=== PATIENT | male | born 1965 | race Caucasian/White ===

== ENCOUNTER 2020-01-31 19:30 | Observation (INO) ==
[2020-01-31] MEDS ORDERED: PROCHLORPERAZINE 2 ML IV ONE (20:45)
[2020-01-31] MEDS ORDERED: FAMOTIDINE 20MG IV PUSH 20 MG/5 ML SYR IV STA (20:45)
[2020-01-31] MEDS ORDERED: SODIUM CHLORIDE 0.9% 500 ML IV ONE (20:45)
[2020-01-31] MEDS ORDERED: ACETAMINOPHEN 1,000 MG/100 ML VIAL IV STA (20:45)
[2020-01-31] MEDS ORDERED: DiphenhydrAMINE HCL 50 MG/ML VIAL IV STA (20:45)
--- NOTE | 2020-01-31 20:51 | Emergency Department Note ---
Impression & Plan Epigastric abdominal pain, Cholelithiasis, Elevated bilirubin ED Provider Note NAME: CHRISTA LEONARD AGE: 54 SEX: M ARRIVES VIA: Walk-In INFORMANT: Patient, ED PROVIDER(S): Phoenix Davis MD CHIEF COMPLAINT: Abdominal pain/ chest pain PLAN: Disposition: Admit MEDICAL DECISION MAKING: The patient is a pleasant 54-year-old gentleman with a past medical history of hypertension, hyperlipidemia, DM 2, LVH presents emergency department with epigastric pain after having colonoscopy today around 10 AM, eating lunch of na usea chills and then several hours later around 1600 and experiencing substernal epigastric pain with mild nausea. He reports a similar episode last week after eating and also felt similar symptoms in the setting of a colonoscopy 1 year ago. He does report feeling bloated and has not passed any gas. He denies any recent illness including denies fevers, chills, cough, congestion, diarrhea, urinary symptoms. On arrival the patient is uncomfortable no acute distress, afebrile stable vital signs. Exam he has mild epigastric discomfort without discrete tenderness. EKG without overt acute ischemia. Chest x-ray negative for acute process. WBC, hemoglobin and platelets within normal limits. Chemistry without acidosis. Total bilirubin 1.9 which is slightly elevated from prior values with direct bilirubin of 0.4. AST, ALT and alk phos are within normal limits. Troponin is negative/undetectable. Lipase is not elevated. CT abdomen pelvis demonstrates fully distended gallbladder with slight wall thickening. A formal gallbladder ultrasound was performed which again demonstrates dilated gallbladder with thickened wall measuring 8 mm. Several tiny gallstones are noted along the gallbladder wall with sludge. CBD measures 7 mm. Upon reevaluation the patient reports feeling some improvement after morphine. However he still reports that he has residual pain though not as severe. Given the patient's elevated bilirubin from baseline in the setting of his CT and ultrasound findings reasonable to admit the patient for further observation of symptoms and likely HIDA scan to further characterize possible biliary obstruction/cholecystitis. Patient is agreeable with this plan. Case was discussed with Dr. Marshall, [facility] [place] hospitalist, who will evaluate the patient for admission. Triage Nursing notes reviewed and agree them. Prior medical records reviewed Vital Signs: reviewed and remarkable for no significant abnormalities Differential diagnosis: Appendicitis, testicular torsion, infections, diverticulitis, UTI, obstruction, mesenteric ischemia, aortic pathology, inflammatory bowel disease, renal colic, PUD, pancreatitis, biliary pathology, hernia, volvulus, constipation, as well as other pathologies. ER treatment provided: See below. Diagnostics interpreted by me: ECG: Sinus bradycardia, 55 bpm, no ectopy, no overt ST elevation or depression, QTC 434, QRS 82. Cardiac Monitoring: An order for continuous cardiac monitoring was placed and demonstrated sinus bradycardia, 55 bpm, no ectopy. Laboratory studies: See below Imaging studies: XR chest 1V portable CLINICAL HISTORY: Atypical chest pain COMPARISON STUDY: December 06, 2013 FINDINGS: The heart is borderline enlarged. There is no failure. There is no focal pulmonary consolidation. There are no pleural effusions. There is no pneumothorax.[ IMPRESSION: No active disease in the chest. -- Preliminary Findings Only See Final Report For Complete Findings CT ABDOMEN & PELVIS With Contrast: There is mild fatty infiltration of the liver and hepatomegaly with the liver measuring 21 cm craniocaudad. No focal liver lesion is seen. The spleen is borderline enlarged measuring 15 cm. No splenic lesion is seen. The gallbladder is fully distended with slight wall thickening measuring 5-6 mm. No calcified gallstones are seen. Correlate with clinical scenario. Consider ul trasound to evaluate for possible cholecystitis. The pancreas, adrenal glands, and kidneys appear nonacute. No hydronephrosis or ureterolithiasis is seen. Bowel loops are nondilated. No pneumoperitoneum, free fluid, focal bowel wall inflammation is seen. The urinary bladder is partially distended with an unremarkable appearance. The prostate gland is mildly enlarged. Moderate degenerative changes are seen in the lower lumbar spine facets. No fracture or bone lesion is seen. Delayed images show several parapelvic renal cysts. No hydronephrosis or urinary tract obstruction is seen. Radiologist: Neeraj Marshall MD Study ready at 22:50 and initial results transmitted at 23:04 -- Preliminary Findings Only See Final Report For Complete Findings US GALLBLADDER: There is fatty infiltration of the liver and hepatomegaly with the liver measuring 21 cm craniocaudad. No focal liver lesion is seen. The portal vein is patent with normal direction of flow. The gallbladder is mildly dilated with a thickened wall measuring 8 mm. There are several tiny gallstones along the gallbladder wall and sludge. Sonographic Hendrickson sign is negative. The common bile duct is nondilated measuring 7 mm. The right kidney measures 14 cm with normal appearance. No hydronephrosis. Radiologist: Neeraj Marshall MD Study ready at 00:11 and initial results transmitted at 00:17 Consultation(s): Case was discussed with Dr. Marshall, [facility] [place] hospitalist, who will evaluate the patient for admission. HPI: The patient is a pleasant 54-year-old gentleman with a past medical history of hypertension, hyperlipidemia, DM 2, LVH presents emergency department with epigastric pain after having colonoscopy today around 10 AM, eating lunch of nausea chills and then several hours later around 1600 and experiencing substernal epigastric pain with mild nausea. He reports a similar episode last week after eating and also felt similar symptoms in the setting of a colonoscopy 1 year ago. He does report feeling bloated and has not passed any gas. He denies any recent illness including denies fevers, chills, cough, congestion, diarrhea, urinary symptoms. ROS: See above HPI for pertinent positives & negatives. A total of 10 systems reviewed and were otherwise negative. PAST MEDICAL HISTORY:See Below PAST SURGICAL HISTORY:See Below FAMILY HISTORY:See Below SOCIAL HISTORY:See Below HOME MEDICATIONS:See Below ALLERGIES:See Below VITALS:See Below PHYSICAL EXAMINATION: GENERAL: Awake, alert, uncomfortable-appearing, in no distress HENT: Normocephalic, atraumatic. Oropharynx with dry mucous membranes and otherwise unremarkable. . EYES: Normal conjunctiva. Sclera non-icteric. NECK: Supple. No nuchal rigidity. FROM. No JVD. RESPIRATORY: Clear to auscultation. CARDIAC: Regular rate, normal rhythm. Extremities warm and well perfused. Pulses equal. ABDOMEN: Soft, non-distended. Mild epigastric discomfort without discrete tenderness to palpation. Negative Hendrickson's sign/No rebound or guarding. No masses. RECTAL: Deferred. MUSCULOSKELETAL: Chest examination reveals no tenderness. The back is symmetrical on inspection without obvious abnormality. There is no CVA te nderness to palpation. No joint edema. LOWER EXTREMITIES: Calves are equal size bilaterally and non-tender. No edema. No discoloration. NEURO: Normal sensorium. No sensory or motor deficits noted. SKIN: No rash or jaundice noted. 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) Palpitation (Resolved) SOB (shortness of breath) (Chronic 12/06/13) Subclinical hypothyroidism (Acute) Vitamin D insufficiency (Chronic) Surgical History (Updated 11/10/19 @ 09:01 by Filomena Goss PA-C) Status post surgery tx of fx of calcaneus Social History Smoking Status: Never smoker Second Hand Exposure: No; Hx Alcohol Use: Yes Hx Substance Use: No Preferred Language: Yi Communication Ability: Effective Visual Impairment: No Limitations Hearing Ability: Normal Configuration Technician Required: No marital status: Current Living Situation: Alone current occupational status: employed current occupation: [employer] Feels Safe at Home: Yes Dental Care, Regularly: Yes Physical Activity Frequency: 3-4 Times per Week Seatbelt Use: always Allergies Allergies Allergy/AdvReac Type Severity Reaction Status Date / Time No Known Allergies Allergy Verified 01/31/20 20:48 Home Meds Home Medications Medication Instructions Recorded Confirmed lansoprazole 15 mg capsule,delayed 15 mg PO Q2D cap 03/08/19 01/31/20 release cholecalciferol (vitamin D3) 1,000 unit PO DAILY 01/31/20 01/31/20 levothyroxine 75 mcg PO QAM 01/31/20 01/31/20 metformin 1,000 mg PO QAM 01/31/20 01/31/20 Previous Rx's Medication Instructions Recorded atorvastatin 10 mg tablet 10 mg PO QPM #30 tab 11/02/19 metoprolol succinate 50 mg 50 mg PO DAILY #90 tab 11/26/19 tablet,extended release 24 hr lisinopril 5 mg tablet 5 mg PO DAILY #90 tab 01/19/20 Results & Data (ED) Vital Signs Vital Signs - 24 hr 01/31/20 19:33 01/31/20 19:43 01/31/20 20:53 Temperature 36.7 C Temperature Source Oral Pulse Rate 61 Pulse Rate [Right Finger] 53 L Respiratory Rate 18 17 Respiratory Depth Normal Blood Pressure 205/118 H Blood Pressure [Left Arm] 169/93 H Blood Pressure Mean 147 Blood Pressure Mean [Left Arm] 118 Blood Pressure Position [Left Arm] Lying Pulse Oximetry 98 99 99 Oxygen Delivery Method Room Air Room Air Room Air Sepsis Recent Fever Within 48 Hours No Sepsis New/Unexplained Change in Mental Status No Sepsis Action Taken by Nursing No Action Required 01/31/20 21:09 01/31/20 22:38 02/01/20 00:15 Temperature Temperature Source Pulse Rate Pulse Rate [Right Finger] 65 58 L 58 L Respiratory Rate 15 18 20 Respiratory Depth Blood Pressure Blood Pressure [Left Arm] 154/92 H 159/104 H 111/56 L Blood Pressure Mean Blood Pressure Mean [Left Arm] 112 122 74 Blood Pressure Position [Left Arm] Lying Pulse Oximetry 97 95 97 Oxygen Delivery Method Room Air Room Air Sepsis Recent Fever Within 48 Hours Sepsis New/Unexplained Change in Mental Status Sepsis Action Taken by Nursing 02/01/20 02:11 Temperature Temperature Source Pulse Rate Pulse Rate [Right Finger] 67 Respiratory Rate Respiratory Depth Blood Pressure Blood Pressure [Left Arm] 135/89 Blood Pressure Mean Blood Pressure Mean [Left Arm] 104 Blood Pressure Position [Left Arm] Sitting Pulse Oximetry 95 Oxygen Delivery Method Room Air Sepsis Recent Fever Within 48 Hours Sepsis New/Unexplained Change in Mental Status Sepsis Action Taken by Nursing Laboratory Data Attestation: I reviewed the patient's lab results. Result diagrams: 01/31/20 20:05 01/31/20 20:05 Lab Results 01/31/20 01/31/20 01/31/20 Range/Units 20:05 20:05 20:05 WBC 8.11 (4.8-10.8) K/uL RBC 4.72 (4.7-6.1) M/uL Hgb 15.0 (14.0-18.0) g/dL Hct 40.5 L (42-52) % MCV 85.8 (80-100) fL MCH 31.8 (25-34) pg MCHC 37.0 H (32-36) g/dL RDW Std Deviation 42.7 (36.4-46.3) fL RDW Coeff of Dino 13.7 (11.5-14.5) % Plt Count 180 (130-400) K/uL MPV 11.4 H (7.4-10.4) fL Immature Gran % (Auto) 0.2 % Neut % (Auto) 75.6 % Lymph % (Auto) 18.0 % [place] % (Auto) 5.5 % Eos % (Auto) 0.6 % Baso % (Auto) 0.1 % Neut # (Auto) 6.12 (1.4-6.5) K/uL Lymph # (Auto) 1.46 (1.2-3.4) K/uL [place] # (Auto) 0.45 (0.11-0.59) K/uL Eos # (Auto) 0.05 (0-0.5) K/uL Baso # (Auto) 0.01 (0-0.2) K/uL Immature Gran # (Auto) 0.02 (0.00-0.02) K/uL PT 10.5 (9.0-12.0) Seconds INR 1.0 (0.9-1.1) APTT 30.5 (21.0-31.0) Seconds PTT Ratio 1.1 Sodium 141 (136-145) mmol/L Potassium 3.7 (3.5-5.1) mmol/L Chloride 109 H (98-107) mmol/L Carbon Dioxide 25 (21-32) mmol/L Anion Gap 7.0 (3-11) BUN 11 (7-18) mg/dl Creatinine 1.11 (0.6-1.4) mg/dl Est Cr Clr Drug Dosing Not Reportable Est GFR ( Amer) 86.8 Est GFR (Non-Af Amer) 74.9 BUN/Creatinine Ratio 9.5 L (10-20) Glucose 125 H (70-99) mg/dl Calcium 8.9 (8.5-10.1) mg/dl Phosphorus 2.4 L (2.5-4.9) mg/dl Magnesium 2.4 (1.8-2.4) mg/dl Total Bilirubin 1.9 H (0.2-1) mg/dl Direct Bilirubin 0.4 H (0-0.2) mg/dl AST 22 (15-37) U/L ALT 44 (12-78) U/L Alkaline Phosphatase 74 (45-117) U/L Troponin I < 0.015 (0-0.045) ng/ml Total Protein 7.6 (6.4-8.2) gm/dl Albumin 4.2 (3.4-5.0) gm/dl Globulin 3.4 (2.5-4.0) gm/dl Albumin/Globulin Ratio 1.2 (0.9-2) Lipase 108 (73-393) U/L TSH 3.390 (0.300-4.500) uIu/ml Administered Medications Discontinued Medications Diphenhydramine HCl (Benadryl) 25 mg IV NOW STA Stop: 01/31/20 20:46 Last Admin: 01/31/20 21:02 Dose: 25 mg Documented by: [id number] Sodium Chloride (Nss) 500 mls @ 999 mls/hr IV .Q31M ONE Stop: 01/31/20 21:15 Last Infusion: 01/31/20 21:30 Dose: 0 mls/hr Documented by: [id number] Admin: 01/31/20 21:02 Dose: 999 mls/hr Documented by: [id number] Acetaminophen (Ofirmev) 1,000 mg in 100 mls @ 400 mls/hr IV NOW STA Stop: 01/31/20 20:59 Last Infusion: 01/31/20 21:19 Dose: 0 mls/hr Documented by: [id number] Admin: 01/31/20 21:02 Dose: 400 mls/hr Documented by: [id number] Famotidine (Pepcid 20mg Iv Push) 20 mg in 5 mls @ 2.5 mls/min IV NOW STA Stop: 01/31/20 20:46 Last Admin: 01/31/20 21:02 Dose: 2.5 mls/min Documented by: [id number] Prochlorperazine (Compazine) 2 mls @ 1 mls/min IV ONE ONE Stop: 01/31/20 20:46 Last Admin: 01/31/20 21:02 Dose: 1 mls/min Documented by: [id number] Morphine Sulfate (Morphine Sulfate) 6 mg IV NOW STA Stop: 01/31/20 22:11 Last Admin: 01/31/20 22:19 Dose: 6 mg Documented by: [id number] Blood Pressure Blood Pressure Findings: Normal blood pressure Discharge Plan Visit Data Chief Complaint: Chest Pain Stated Complaint: CHEST PAIN, ABD PAIN ED Provider: Phoenix Davis Discharge Problem: Epigastric abdominal pain, Cholelithiasis, Elevated bilirubin Forms Stand Alone Forms: [facility] Prescriptions Prescriptions: No Action atorvastatin 10 mg tablet 10 mg PO QPM Qty: 30 RF: 5 metoprolol succinate 50 mg tablet extended release 24 hr 50 mg PO DAILY Qty: 90 RF: 3 lisinopril 5 mg tablet 5 mg PO DAILY Qty: 90 RF: 3 lansoprazole 15 mg capsule,delayed release(DR/EC) 15 mg PO Q2D RF: 0 levothyroxine 75 mcg tablet 75 mcg PO QAM RF: 0 metformin 1,000 mg tablet 1,000 mg PO QAM RF: 0 cholecalciferol (vitamin D3) 25 mcg (1,000 unit) capsule 1,000 unit PO DAILY RF: 0 Discharge Problem: Cholelithiasis Qualifiers: Cholelithiasis location: gallbladder
[2020-01-31 20:55] LABS: Basophils # (auto) 0.01 K/uL (0-0.2); Basophils % (auto) 0.1 %; Eosinophils # (auto) 0.05 K/uL (0-0.5); Eosinophils % (auto) 0.6 %; Hematocrit (blood only) 40.5 % (42-52); Immature Granulocytes # (auto) 0.02 K/uL (0.00-0.02); Immature Granulocytes % (auto) 0.2 %; Lymphocytes # (auto) 1.46 K/uL (1.2-3.4); Mean Corpuscular Hemoglobin 31.8 pg (25-34); Mean Corpuscular Volume 85.8 fL (80-100); Mean Platelet Volume 11.4 fL (7.4-10.4); Monocytes # (auto) 0.45 K/uL (0.11-0.59); Monocytes % (auto) 5.5 %; Neutrophils # (auto) 6.12 K/uL (1.4-6.5); Neutrophils % (auto) 75.6 %; Platelet Count 180 K/uL (130-400); RDW Coefficient of Variation 13.7 % (11.5-14.5); RDW Standard Deviation 42.7 fL (36.4-46.3); Red Blood Count 4.72 M/uL (4.7-6.1); White Blood Count 8.11 K/uL (4.8-10.8)
[2020-01-31 21:02] LABS: Alanine Aminotransferase 44 U/L (12-78); Albumin Level 4.2 gm/dl (3.4-5.0); Aspartate Aminotransferase 22 U/L (15-37); BUN Creatinine Ratio 9.5 (10-20); Bilirubin Direct 0.4 mg/dl (0-0.2); Blood Urea Nitrogen 11 mg/dl (7-18); Calcium 8.9 mg/dl (8.5-10.1); Carbon Dioxide 25 mmol/L (21-32); Chloride 109 mmol/L (98-107); Est GFR (African American) 86.8; Est GFR (Non-African American) 74.9; Glucose 125 mg/dl (70-99); Lipase 108 U/L (73-393); Magnesium 2.4 mg/dl (1.8-2.4); Partial Thromboplastin Ratio 1.1; Partial Thromboplastin Time 30.5 Seconds (21.0-31.0); Potassium 3.7 mmol/L (3.5-5.1); Prothrombin Time 10.5 Seconds (9.0-12.0); Sodium 141 mmol/L (136-145)
--- NOTE | 2020-01-31 21:06 | XRay Report ---
XR chest 1V portable CLINICAL HISTORY: Atypical chest pain COMPARISON STUDY: December 06, 2013 FINDINGS: The heart is borderline enlarged. There is no failure. There is no focal pulmonary consolid ation. There are no pleural effusions. There is no pneumothorax.[ IMPRESSION: No active disease in the chest. ACT 112: Negative or not required by law. Electronically signed by: Kelvin Sunshine M.D. 01/31/2020 9:04 PM
[2020-01-31 21:11] LABS: Albumin Globulin Ratio 1.2 (0.9-2); Alkaline Phosphatase 74 U/L (45-117); Bilirubin,Total 1.9 mg/dl (0.2-1); Globulin 3.4 gm/dl (2.5-4.0); Phosphorus 2.4 mg/dl (2.5-4.9); Total Protein 7.6 gm/dl (6.4-8.2); Troponin I < 0.015 ng/ml (0-0.045)
[2020-01-31] MEDS ORDERED: MoRPHine SULFATE 10 MG/ML CARP/VIAL IV STA (22:10)
[2020-02-01] MEDS ORDERED: MoRPHine SULFATE 4 MG/ML 1 ML CARP\\VIAL IV PRN (00:31)
[2020-02-01] MEDS ORDERED: MoRPHine SULFATE 2 MG/ML CARP IV PRN ×2 (00:31→05:17)
[2020-02-01] MEDS ORDERED: SODIUM CHLORIDE 0.9% 1000ML 1,000 ML IV SCH (01:45)
--- NOTE | 2020-02-01 01:51 | History & Physical Report ---
Date of Service February 01, 2020 Assessment & Plan (1) Epigastric abdominal pain: 54-year-old male with past medical history DM 2, hypertension, hypercholesterolemia, subclinical hypothyroidism, vitamin D deficiency presents with concerns of epigastric abdominal pain found to have concern for c holecystitis on imaging. Concern for cholecystitis -CT abdomen pelvis with contrast: The gallbladder is fully distended with slight wall thickening measuring 5-6 mm. No calcified gallstones are seen -US gallbladder: The gallbladder is mildly dilated with a thickened wall measuring 8 mm. There are several tiny gallstones along the gallbladder wall and sludge. Sonographic Hendrickson sign is negative. The common bile duct is nondilated measuring 7 mm T bili 1.9, direct bili 0.4. Trend daily CMP Plan for HIDA scan in a.m. We will make patient n.p.o. IVF with NSS@80 mls/hr Continue with IV Zosyn for antibiotic coverage Pain management with IV morphine 2 mg every 4 hours. IV Zofran PRN for nausea Defer any GI or surgical consult until after HIDA results Hypertension/hyperlipidemia Cont lisinopril 5 mg, metoprolol succinate 50 mg, atorvastatin 10 mg DM 2 Holding patient's home metformin. Will place on SSI A1c September.9 Hypothyroidism TSH 3.39 Cont levothyroxine 75 mcg FEN/GI: NSS@80. N.p.o. DVT prophylaxis: Lovenox SQ Full code Dispo: MedSurg History of Present Illness Chief Complaint: Abdominal pain Primary Care Provider: NICKI Newsome 54-year-old male with past medical history DM 2, hypertension, hypercholesterolemia, subclinical hypothyroidism, vitamin D deficiency presents with concerns of epigastric abdominal pain. Earlier in the morning patient had a colonoscopy after which he was eating Faroese food for lunch. Around 4 PM patient noted a sharp constant pain that lasted for about an hour, nonradiating. Patient notes that he feels very bloated. Severity 8 or 9 out of 10 on pain scale. Previous similar such occurrence last when patient was eating a turkey sandwich. No known exacerbating or alleviating factors. Associated nausea. Patient otherwise denies any fevers, vomiting, diarrhea, chills, chest pain, shortness of breath, urinary symptoms, no sick contacts or recent travel anywhere. Patient with no other acute concerns or complaints. At time of my evaluation patient notes he is no longer having abdominal pain, 0 out of 10. Pertinent labs: Glucose 125, phosphorus 2.4, T bili 1.9, direct bili 0.4, troponin negative, lipase/liver enzymes WNL CT abdomen pelvis with contrast ([facility]): The gallbladder is fully distended with slight wall thickening measuring 5-6 mm. No calcified gallstones are seen. There is mild fatty infiltration of the liver and hepatomegaly with the liver measuring 21 cm craniocaudad. No focal liver lesion is seen. The spleen is bord peterson enlarged measuring 15 cm. No splenic lesion is seen. The pancreas, adrenal glands, and kidneys appear nonacute. No hydronephrosis or ureterolithiasis is seen. US gallbladder ([facility]): The gallbladder is mildly dilated with a thickened wall measuring 8 mm. There are several tiny gallstones along the gallbladder wall and sludge. Sonographic Hendrickson sign is negative. The common bile duct is no ndilated measuring 7 mm. ER course: IV acetaminophen 1 g, IV diphenhydramine 25 mg, IV famotidine 20 mg, IV morphine 2 mg / 4 mg, IV prochlorperazine, NSS 1.5 L Surgical history: No prior abdominal surgeries Social history: Denies tobacco use. Social alcohol use. Denies any illicit drug use Allergies Allergy/AdvReac Type Severity Reaction Status Date / Time No Known Allergies Allergy Verified 01/31/20 20:48 Home Medications Home Medications Medication Instructions Recorded Confirmed Type lansoprazole 15 mg capsule,delayed 15 mg PO Q2D cap 03/08/19 01/31/20 History release atorvastatin 10 mg tablet 10 mg PO QPM #30 tab 11/02/19 01/31/20 Rx metoprolol succinate 50 mg 50 mg PO DAILY #90 tab 11/26/19 01/31/20 Rx tablet,extended release 24 hr lisinopril 5 mg tablet 5 mg PO DAILY #90 tab 01/19/20 01/31/20 Rx cholecalciferol (vitamin D3) 1,000 unit PO DAILY 01/31/20 01/31/20 History levothyroxine 75 mcg PO QAM 01/31/20 01/31/20 History metformin 1,000 mg PO QAM 01/31/20 01/31/20 History Past Med/Surg History Medical History (Updated 02/01/20 @ 03:26 by Phoenix Davis MD) Chest pain (Resolved) Diabetes type 2, uncontrolled (Chronic) Hypercholesterolemia (Chronic) Hypertension (Chronic) Incomplete bladder emptying (Resolved) Left ventricular hypertrophy (Chronic) 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) Palpitation (Resolved) SOB (shortness of breath) (Chronic 12/06/13) Subclinical hypothyroidism (Acute) Vitamin D insufficiency (Chronic) Surgical History (Updated 11/10/19 @ 09:01 by Filomena Goss PA-C) Status post surgery tx of fx of calcaneus Social History Smoking Status: Never smoker Second Hand Exposure: No; Hx Alcohol Use: No Hx Substance Use: No Preferred Language: Khmer Communication Ability: Effective Visual Impairment: No Limitations Hearing Ability: Normal Operations Lieutenant Required: No Beliefs That Will Affect Care: None marital status: Current Living Situation: Alone current occupational status: employed current occupation: [employer] Feels Safe at Home: Yes Dental Care, Regularly: Yes Physical Activity Frequency: 3-4 Times per Week Seatbelt Use: always Review of Systems Review of Systems: All systems reviewed & are unremarkable except as noted in HPI & below Physical Exam Constitutional: WD/WN, vitals as above Eyes: PERRL, conjunctivae normal, anicteric sclerae ENMT: external ear and nose normal, oropharynx normal Respiratory: normal respiratory effort, lungs clear to auscultation Cardiovascular: RRR, no murmur, no edema Gastrointestinal (Abdomen): normal bowel sounds, soft, nontender, no hepatosplenomegaly Inspection/Auscultation: + abdomen distended Percussion/Palpation: abdomen soft; no guarding Skin: no rashes, warm and dry Psychiatric: A+Ox3, euthymic affect Results & Data Results & Data ([facility]) Vital Signs (Past 12 Hours) Vital Signs Temp Pulse Pulse Resp BP BP Pulse Ox 02/01/20 00:15 58 L 20 111/56 L 97 01/31/20 22:38 58 L 18 159/104 H 95 01/31/20 21:09 65 15 154/92 H 97 01/31/20 20:53 99 01/31/20 19:43 53 L 17 169/93 H 99 01/31/20 19:33 36.7 C 61 18 205/118 H 98 Laboratory Results Laboratory Results - last 24 hr 01/31/20 01/31/20 01/31/20 20:05 20:05 20:05 WBC 8.11 RBC 4.72 Hgb 15.0 Hct 40.5 L MCV 85.8 MCH 31.8 MCHC 37.0 H RDW Std Deviation 42.7 RDW Coeff of Dino 13.7 Plt Count 180 MPV 11.4 H Immature Gran % (Auto) 0.2 Neut % (Auto) 75.6 Lymph % (Auto) 18.0 [place] % (Auto) 5.5 Eos % (Auto) 0.6 Baso % (Auto) 0.1 Neut # (Auto) 6.12 Lymph # (Auto) 1.46 [place] # (Auto) 0.45 Eos # (Auto) 0.05 Baso # (Auto) 0.01 Immature Gran # (Auto) 0.02 PT 10.5 INR 1.0 APTT 30.5 PTT Ratio 1.1 Sodium 141 Potassium 3.7 Chloride 109 H Carbon Dioxide 25 Anion Gap 7.0 BUN 11 Creatinine 1.11 Est Cr Clr Drug Dosing Not Reportable Est GFR ( Amer) 86.8 Est GFR (Non-Af Amer) 74.9 BUN/Creatinine Ratio 9.5 L Glucose 125 H Calcium 8.9 Phosphorus 2.4 L Magnesium 2.4 Total Bilirubin 1.9 H Direct Bilirubin 0.4 H AST 22 ALT 44 Alkaline Phosphatase 74 Troponin I < 0.015 Total Protein 7.6 Albumin 4.2 Globulin 3.4 Albumin/Globulin Ratio 1.2 Lipase 108 TSH 3.390 Medications Administered Current Inpatient Medications Sodium Chloride (Nss 1000ml) 1,000 mls @ 125 mls/hr IV .Q8H [facility] Stop: 03/02/20 01:44 Morphine Sulfate (Morphine Sulfate) 2 mg IV Q2H PRN PRN Reason: Moderate Pain (Rating 3,4,5,6) Stop: 02/15/20 00:30 Morphine Sulfate (Morphine Sulfate) 4 mg IV Q2H PRN PRN Reason: Severe Pain (Rating 7,8,9,10) Stop: 02/15/20 00:30 Code Status & VTE Plan Code Status Full Supervising Physician Co-Signing Physician Notes Patient seen and examined, chart reviewed, case discussed with Dr. Alexandra and I agree with his assessment and plan as documented above. Briefly, patient is a pleasant 54yo C male presenting with epigastric discomfort x multiple episodes. Occurs hours after eating. Imaging suggests possible cholecystitis On exam patient is resting comfortably, afebrile, HD stable Skin - no rash HEENT- NC/AT, PERRL, EOMI, MMM, neck supple Heart - +S1/S2, regular, no m/r/g Lungs - CTA Abd - +BS, soft, NT/ND, Negative Hendrickson's sign Ext - No edema Labs and images reviewed. No leukocytosis. LFTs with mild elevation in Tbili and Dbili to 1.9 and 0.4, respectively GB US with dilated gallbladder and thickened wall to 8mm. Several tiny gallstones along the gallbladder wall and sludge. CBD is 7mm Assessment/Plan- 54yo C male with epigastric pain -Observation to medical floor -HIDA scan -GI, Surgery consultation as appropriate pending results of HIDA and repeat labs -Remainder of plan as above Resident Activity Tracking Resident Involvement: Resident Care Provided Care Provided: Adult Hospital Medicine
--- NOTE | 2020-02-01 03:32 | Billing Data ---
Date of Service February 01, 2020 Coding Level of Care Code 36772 OBS Care - Level 3
[2020-02-01] MEDS ORDERED: ONDANSETRON INJ 2 MG/ML 2 ML VIAL IV PRN (05:17)
[2020-02-01] MEDS ORDERED: GLUCOSE 40% GEL 15 GM TUBE PO PRN (05:17)
[2020-02-01] MEDS ORDERED: GLUCAGON FOR INJ 1 MG VIAL SQ PRN (05:17)
[2020-02-01] MEDS ORDERED: ALUMINUM/MAGNESIUM SUSP 30 ML UDC PO PRN (05:17)
[2020-02-01] MEDS ORDERED: PIPERACILL/TAZOBAC CONSULT ACTIVE PRN (05:17)
[2020-02-01] MEDS ORDERED: CARBOHYDRATES FOR HYPOGLYCEMIA PO PRN (05:17)
[2020-02-01] MEDS ORDERED: ACETAMINOPHEN 325 MG TAB PO PRN (05:17)
[2020-02-01] MEDS ORDERED: GLUCOSE 10 TABS/TUBE PO PRN (05:17)
[2020-02-01] MEDS ORDERED: DEXTROSE 50% 50 ML SYRINGE IV PRN (05:17)
[2020-02-01] MEDS ORDERED: PIPERACILLIN/TAZOBACTAM 4.5 GM in DEXTROSE 5% 100 ML IV ONE (06:00)
[2020-02-01] MEDS: SODIUM CHLORIDE 0.9% 1000ML 1,000 ML IV SCH ×2 (06:04→17:40)
[2020-02-01] MEDS: INSULIN ASPART 100 UNITS/ML 3 ML PEN SC SCH ×3 (06:08→17:38)
--- NOTE | 2020-02-01 06:27 | Ultrasound Report ---
US gallbladder HISTORY: Pain. Nausea. upper abd pain COMPARISON: None. FINDINGS: The liver shows evidence for fatty replacement. Gallbladder is distended with edematous gallbladder w all at 8 mm. There is trace amount of small gallstones and sludge. Common bile lung measures 7 mm. The intrahepatic ducts are normal. Right kidney is negative for hydronephrosis. IMPRESSION: Thickened gallbladder wall at 8 mm combine with a small amount of gallbladder sludge and small gallst ones. Fatty replacement of the liver. ACT 112: Negative or not required by law. The above report was generated using voice recognition software. It may contain grammatical, syntax or spelling errors. Electronically signed by: Timmy Mayer M.D. 02/01/2020 6:25 AM
[2020-02-01] MEDS: LEVOTHYROXINE SODIUM 75 MCG TABLET PO SCH (06:34)
--- NOTE | 2020-02-01 07:17 | CT Scan Report ---
CT OF THE ABDOMEN AND PELVIS WITH CONTRAST CLINICAL HISTORY: abd pain, colonoscopy today COMPARISON STUDY: Right upper quadrant ultrasound September 24, 2018. TECHNIQUE: Following IV administration of 118 mL of Optiray-320, axial images of the abdomen and pelv is were obtained from the lung bases to the proximal femurs. Images were reviewed in the axial, sagit dwight, and coronal planes. IV contrast was administered without complication. Automated exposure contr ol was utilized for the study. A dose lowering technique was utilized adhering to the principles of ALARA. CT DOSE: 2843.60 mGy.cm FINDINGS: Lung bases are unremarkable. No pneumatosis, free air or portal venous gas is present. Ther e is probable fatty infiltration of the liver. Moderate gallbladder wall thickening is noted. There i s minimal adjacent infiltration. There is no biliary or pancreatic ductal dilatation. There is no per ipancreatic infiltration. The spleen and adrenal glands are unremarkable. A few renal cysts are noted . A 1.8 cm lesion within the midpole of the left kidney measures above water attenuation. There are l eft-sided parapelvic cysts. There is no hydronephrosis. Prostate is moderately enlarged. There is no evidence for a bowel obstruction. Caliber and wall thickness of small and large bowel are normal. The appendix is normal. No lymphadenopathy is present. There are several indeterminate sclerotic lesions within the bilateral iliac bones and the L3 vertebral body right iliac bone sclerotic focus could re flect a sclerotic lesion or harvest site. Post surgical findings within the lumbar spine are noted. IMPRESSION: 1. No free air. No bowel wall thickening. 2. Gallbladder wall thickening with adjacent infiltration. Right upper quadrant ultrasound is recomme nded to evaluate for acute cholecystitis. 3. Several indeterminate sclerotic lesions within the bilateral iliac bones and the L3 vertebral body . The right iliac bone focus could be postsurgical however metastatic disease, such as prostate, coul d have this appearance. This finding will be called/faxed to the ordering provider at time of dictati on. 4. 1.8 cm left renal lesion. This favors a cyst however a small solid renal lesion could appear simil ar. A renal ultrasound is recommended for further evaluation. ACT 112: Negative or not required by law. Electronically signed by: Demond Mccarthy M.D. 02/01/2020 7:15 AM
[2020-02-01] MEDS: METOPROLOL SUCC 50MG EXT REL TAB PO SCH (08:50)
[2020-02-01] MEDS ORDERED: INSULIN GLARGINE SOLOSTAR 100 UNITS/ML 3 ML PEN SC SCH (09:00)
[2020-02-01] MEDS ORDERED: ENOXAPARIN INJ 40 MG/0.4 ML SYR SQ SCH (09:00)
[2020-02-01] MEDS: INSULIN GLARGINE SOLOSTAR 100 UNITS/ML 3 ML PEN SC SCH ×2 (09:05→21:42)
[2020-02-01 09:50] LABS: Estimated Average Glucose 94 mg/dl; Hemoglobin A1C 4.9 % (4.5-5.6)
[2020-02-01] MEDS: PIPERACILLIN/TAZOBACTAM 4.5 GM in DEXTROSE 5% 100 ML IV SCH ×2 (10:19→17:40)
[2020-02-01] MEDS ORDERED: SODIUM CHLORIDE 0.9% IV SCH (12:00)
[2020-02-01] MEDS ORDERED: SINCALIDE IV SCH (12:00)
[2020-02-01] MEDS ORDERED: MoRPHine SULFATE 2 MG/ML CARP ONE (12:42)
--- NOTE | 2020-02-01 12:45 | Medical Student Progress Note ---
Date of Service February 01, 2020 Assessment & Plan (1) Epigastric abdominal pain: Patient is a 54-year-old male with past medical history of T2DM, hypertension, hypercholesterolemia, subclinical hypothyroidism, and vitamin D deficiency presented to the ED with RUQ/epigastric abdominal pain concerning for cholecystitis. 1. RUQ/Epigastric Pain concerning for cholecystitis - CT Abdomen/Pelvis with Contrast: The gallbladder is fully distended with slight wall thickening measuring 5-6 mm. No calcified gallstones are seen - U/S gallbladder: The gallbladder is mildly dilated with a thickened wall measuring 8 mm. There are several tiny gallstones along the gallbladder wall and sludge. Sonographic Hendrickson sign is negative. The common bile duct is nondilated measuring 7 mm - T bili 1.9, direct bili 0.4 - trend daily CMP - HIDA scan results pending - Continue NPO, IVF with NSS @ 80 ml/hr - Continue with IV Zosyn for antibiotic coverage - Continue IV Zofran PRN for nausea - Defer any GI or surgical consult until after HIDA results 2. Left Renal Lesion - CT Abdomen/Pelvis with Contrast: 1.8 cm left renal lesion questionable for cyst vs. small solid lesion - Order renal u/s for further investigation 3. Sclerotic Iliac Lesions - CT Abdomen/Pelvis with Contrast: bilateral sclerotic lesions at iliac bones and L3 vertebral body. Enlarged prostate. - Questionable etiology: mets from prostate cancer - Patient has experienced long-term difficulty voiding - PSA form September 2018: 0.861 - Consult Urology for input 4. Type 2 Diabetes Mellitus, Controlled - A1c in September 2019: 4.9 - Fasting BS - Holding patient's home metformin while NPO - Will place on basal/bolus insulin 5. Hypertension - Continue lisinopril 5 mg, metoprolol succinate 50 mg 6. Hyperlipidemia - Continue atorvastatin 10 mg 7. Hypothyroidism TSH 3.39 Cont levothyroxine 75 mcg FEN/GI: NSS@80, D50. NPO. DVT prophylaxis: Lovenox SQ Full code Dispo: MedSurg Present on Admission?: Yes Subjective Patient is a 54 year old patient who presented to the ED on 01/30 with epigastric pain s/p colonoscopy at 10 AM yesterday. He went to have Dutch food for lunch and at 4 PM, began to have sharp, non-radiating pain with 8-9/10 severity. Similar pain presented last week after eating a turkey sandwich, which only lasted for 20-25 minutes. He endorsed bloating and nausea and denied fever, vomiting, diarrhea, chills, chest pain, shortness of breath, urinary symptoms. Since admission, he says he is feeling 100% better and is not having any pain. He feels a bit uncomfortable because he has not really eaten since beginning his colonoscopy preparation since the weekend. Physical Exam Constitutional: well developed, well nourished, + morbidly obese and cooperative; no acute distress Eyes: + anicteric sclerae; normal pupil size Neck: normal visual inspection Respiratory: normal respiratory effort; no respiratory distress and no cough Auscultation: lungs clear to auscultation bilaterally; no crackles, no rales, no rhonchi and no wheezes Cardiovascular: Rate/Rhythm: regular rate and regular rhythm Heart Sounds: normal S1 and normal S2 Vessels: radial pulses present Extremities: normal capillary refill; no edema Gastrointestinal (Abdomen): Inspection/Auscultation: abdomen normal to inspection, + abdomen distended and normal bowel sounds Percussion/Palpation: + abdomen tender (RLQ, LLQ (deep palpation), 2/10 pain with Hendrickson's) and abdomen soft; no guarding Skin: no rashes, warm and dry Psychiatric: A+Ox3, euthymic affect Results & Data Medications Administered Enoxaparin Sodium (Lovenox) 40 mg SQ QAM [facility] Stop: 03/02/20 08:59 Last Admin: 02/01/20 10:19 Dose: 40 mg Documented by: [id number] Sodium Chloride (Nss 1000ml) 1,000 mls @ 80 mls/hr IV .[id number] [facility] Stop: 03/02/20 05:16 Last Admin: 02/01/20 06:04 Dose: 80 mls/hr Documented by: [id number] Piperacillin Sod/Tazobactam (Sod 4.5 gm/ Dextrose) 120 mls @ 30 mls/hr IV Q8H [facility]; Protocol Stop: 02/11/20 09:59 Last Admin: 02/01/20 10:19 Dose: 30 mls/hr Documented by: [id number] Insulin Aspart (Novolog Flexpen) 0 units SC Q6 [facility] Stop: 03/02/20 05:59 Last Admin: 02/01/20 06:08 Dose: Not Given Documented by: [id number] Cosigned by: [id number] Insulin Glargine (Lantus Solostar Pen) 12 units SC BID [facility] Stop: 03/02/20 08:59 Last Admin: 02/01/20 09:05 Dose: Not Given Documented by: [id number] Levothyroxine Sodium (Synthroid) 75 mcg PO DAILYBB [facility] Stop: 03/02/20 06:29 Last Admin: 02/01/20 06:34 Dose: 75 mcg Documented by: [id number] Metoprolol Succinate (Toprol Xl) 50 mg PO DAILY [facility] Stop: 03/02/20 08:59 Last Admin: 02/01/20 08:50 Dose: Not Given Documented by: [id number] Supervising Attestation Medical Student Supervision Note: I independently interviewed and examined the patient and verified the ramos history and physical, reviewed labs and image studies, discussed the case with Heavenly Stone and agree with the findings and care plan. HIDA scan results reviewed- consulted surgery. Spoke to Dr. Gonsales. Will go to the OR in am will give liquid for diet for dinner today.
--- NOTE | 2020-02-01 13:35 | Nuclear Medicine Report ---
NM hepatobiliary CLINICAL HISTORY: 54 years-old Male with cholecystitis. Acute right upper quadrant abdominal pain TECHNIQUE: Sequential anterior abdominal images were obtained through 105 minutes following the intr avenous administration of 5.1 mCi of technetium-99m Choletec. COMPARISON: CT abdomen and pelvis 01/31/2020 FINDINGS: There is prompt, uniform accumulation of the tracer by the liver. There is normal filling of the int rahepatic ducts, common bile duct and normal excretion of the tracer into the duodenum. Moderate to l arge amount of enterogastric reflux. The gallbladder does not fill by 60 minutes. 2 mg of intravenous morphine sulfate was then administered intravenously. Additional imaging was obtained for another 45 minutes which still showed no accumulation of activity within the gallbladder. There is further prog ression of tracer activity within the bowel on the delayed images. IMPRESSION: 1. Nonvisualization of the gallbladder compatible with cystic duct obstruction. 2. Moderate to large amount of enterogastric reflux. ACT 112: Negative or not required by law. The above report was generated using voice recognition software. It may contain grammatical, syntax o r spelling errors. Electronically signed by: Star Alas M.D. 02/01/2020 1:34 PM
--- NOTE | 2020-02-01 13:55 | Ultrasound Report ---
US renal/blad retro comp HISTORY: Abnormal CT examination L kidney 1.8cm lesion on CT COMPARISON: CT 01/31/2020 FINDINGS: Right kidney: Maximum dimension 15 cm. Several very small cysts. No evidence for hydronephrosis. Norm al corticomedullary differentiation and cortical thickness. Left kidney: Maximum dimension 14.1 cm. 1.8 cm cyst corresponding to the CT findings appear symmetri c described. Several additional peripelvic cysts are present. Normal corticomedullary differentiation and cortical thickness. Bladder: No bladder wall thickening. The bilateral ureteral jets were identified. IMPRESSION: 1. The nodular density on the patient's prior CT examination appear to represent a small benign cyst. 2. Several additional bilateral renal cysts/parapelvic cyst 3. Study is otherwise normal. ACT 112: Negative or not required by law. The above report was generated using voice recognition software. It may contain grammatical, syntax or spelling errors. Electronically signed by: Timmy Mayer M.D. 02/01/2020 1:54 PM
[2020-02-01] MEDS: CHOLECALCIFEROL 1,000 UNITS 25 MCG TAB PO SCH (14:25)
[2020-02-01] MEDS: lisinopriL 5 MG TAB PO SCH (14:25)
--- NOTE | 2020-02-01 15:38 | Urology Consultation ---
Date of Consultation February 01, 2020 Assessment & Plan (1) Renal cyst: (2) Incomplete bladder emptyin-year-old gentleman admitted for unrelated issues but had incidental discovery of a left renal lesion His initial CT questioned whether this was solid or cystic, a follow-up ultrasound has confirmed that this is in fact a simple cyst He does not require further imaging of this cyst as it has extremely limited malignant potential. On a separate note, he does report that he has had longstanding voiding dysfunction which is been gradually progressing over the past decade He has symptoms consistent with BPH driven obstruction I have suggested we try tamsulosin We will order PSA to be collected as an outpatient In for outpatient follow-up to manage his voiding dysfunction History of Present Illness Attending Physician: Blanca Singh MD History of Present Illness 54-year-old gentleman admitted to the emergency room secondary to abdominal pain. In the midst of his work-up he underwent a CT abdomen pelvisNoncon. There was an incidental finding of a left renal lesion. This was only 1.8 cm, however it was difficult to discern solid versus cystic nature. He has never experienced hematuria or dysuria He does have baseline voiding dysfunction with hesitancy, postvoid dribbling and some concern that he is emptying incompletely. He has never been on medications for BPH. He did previously have nocturia, however after improving his diabetes control nocturia resolved. Allergies Allergy/AdvReac Type Severity Reaction Status Date / Time No Known Allergies Allergy Verified 01/31/20 20:48 Home Medications Home Medications Medication Instructions Recorded Confirmed Type lansoprazole 15 mg capsule,delayed 15 mg PO Q2D cap 03/08/19 01/31/20 History release atorvastatin 10 mg tablet 10 mg PO QPM #30 tab 11/02/19 01/31/20 Rx metoprolol succinate 50 mg 50 mg PO DAILY #90 tab 11/26/19 01/31/20 Rx tablet,extended release 24 hr lisinopril 5 mg tablet 5 mg PO DAILY #90 tab 01/19/20 01/31/20 Rx cholecalciferol (vitamin D3) 1,000 unit PO DAILY 01/31/20 01/31/20 History levothyroxine 75 mcg PO QAM 01/31/20 01/31/20 History metformin 1,000 mg PO QAM 01/31/20 01/31/20 History Patient History Medical History Chest pain (Resolved) Diabetes type 2, uncontrolled (Chronic) Hypercholesterolemia (Chronic) Hypertension (Chronic) Incomplete bladder emptying (Resolved) Left ventricular hypertrophy (Chronic) 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) Palpitation (Resolved) SOB (shortness of breath) (Chronic 12/06/13) Subclinical hypothyroidism (Acute) Vitamin D insufficiency (Chronic) Surgical History Status post surgery tx of fx of calcaneus Family History Father Myocardial infarction Congestive heart failure Diabetes Nephrolithiasis Mother Myocardial infarction Social History Smoking Status: Never smoker Second Hand Exposure: No; Hx Alcohol Use: No Hx Substance Use: No Preferred Language: Citizen Of [place] Communication Ability: Effective Visual Impairment: No Limitations Hearing Ability: Normal Digital Marketing Strategist Required: No Beliefs That Will Affect Care: None marital status: Current Living Situation: Alone current occupational status: employed current occupation: [employer] Feels Safe at Home: Yes Dental Care, Regularly: Yes Physical Activity Frequency: 3-4 Times per Week Seatbelt Use: always Review of Systems Constitutional: no fever, no chills and no fatigue Eyes: no worsening vision Ear, Nose, Mouth, Throat: no facial pain and no pain with swallowing Respiratory: no cough and no dyspnea Cardiovascular: no chest pain and no palpitations Gastrointestinal: + abdominal pain; no nausea and no vomiting Musculoskeletal: no back pain Integumentary: no rash and no urticaria Neurologic: no gait abnormality and no unsteadiness Psychiatric: no behavioral changes and no depression Endocrine: no fatigue Physical Exam Constitutional: well developed and well nourished Neck: neck nontender Respiratory: normal respiratory effort; no respiratory distress and does not use accessory muscles Cardiovascular: Rate/Rhythm: regular rate Vessels: radial pulses present Extremities: no edema Gastrointestinal (Abdomen): Inspection/Auscultation: abdomen normal to inspection Percussion/Palpation: abdomen soft; abdomen nontender and no gua rding Musculoskeletal: Head/Neck/Chest: normocephalic and head atraumatic Extremities: extremities normal to inspection Skin: no rashes and no lesions Trauma: no evidence of skin trauma Neurologic: awake; not obtunded Speech / Cognition: normal speech Motor/Sensory: no tremor Psychiatric: Orientation: alert and oriented x 3 Genitourinary: no CVA tenderness Lymphatic: no lymphadenopathy Results & Data Vital Signs (Past 12 Hours) Vital Signs Temp Pulse Resp BP Pulse Ox 02/01/20 14:54 36.8 C 66 18 135/84 98 02/01/20 07:20 36.6 C 57 L 18 128/83 96 02/01/20 05:17 36.4 C L 59 L 18 121/76 97 02/01/20 04:47 98 02/01/20 03:41 57 L 116/73 98 PG Care Time/CCT Total # of Minutes Spent Total Time Spent with Patient: Total time spent is greater than 50% in coordination of care (as documented) at patient's floor/unit and/or counseling patient: Coding Level of Care Code 89208 Inpt Consult Level 4 Diagnoses Renal cyst N28.1 Incomplete bladder emptying R33.9
--- NOTE | 2020-02-01 17:06 | Surgery Consultation ---
Date of Consultation February 01, 2020 Assessment & Plan (1) Elevated bilirubin: This is a 54yM with a PMH of DM2, HTN, and hypothyroidism who presented to the [facility] on 01/31/20 with abdominal pain. Patient with some abdominal discomfort on that self resolved, but then returned yesterday after eating [place] food for dinner. In the ED patient found to have an elevated Tbili to 1.9, therefore workup obtained to evaluate gallbladder etiology. RUQ US showed a thickened gallbladder wall at 8 mm combine with a small amount of gallbladder sludge and small gallstones. HIDA obtained today revealed nonvisualization of the gallbladder consistent with cystic duct obstruction. Physical exam limited to body habitus, however he is bloated and was previously complaining of epigastric and upper abdominal pain. After examination and review of imaging we have decided to take the patient to the OR tomorrow for a laparoscopic cholecystectomy and plan for cholangiogram. Patient to be made NPO at midnight. Continue IV Zosyn & IVF. We have asked the hospitalist to order a rapid covid-19 test. Patient seen and examined with Dr. Gonsales who will also obtain consent. (2) Cholelithiasis: History of Present Illness Attending Physician: Blanca Singh MD History of Present Illness This is a 54yM with a PMH of DM2, HTN, and hypothyroidism who presented to the [facility] on 01/31/20 with abdominal pain. Patient reports that he first noticed he felt ill with some abdominal discomfort last for about 20-25 minutes then it went away. Over the weekend he was on a liquid diet in prep for a colonoscopy which was performed yesterday. After the colonoscopy patient ate [place] food when again he started to feel ill and developed some upper abdominal pain. He came to the ED for further evaluation. Workup revealed an elevated Tbili: 1.9, Dbili: 0.4, with other LFT's being within normal limits. WBC: 8. CT a/p showed gallbladder wall thickening, followed up with a RUQ US showing thickened gallbladder wall at 8 mm combine with a small amount of gallbladder sludge and small gallstones. Patient was admitted to the hospitalist service where a HIDA was ordered today which revealed nonvisualization of the gallbladder consistent with cystic duct obstruction. Patient reports + bloating, but overall improvement in his symptoms at the time being. Surgery was consulted thereafter for further evaluation. Allergies Allergy/AdvReac Type Severity Reaction Status Date / Time No Known Allergies Allergy Verified 01/31/20 20:48 Home Medications Home Medications Medication Instructions Recorded Confirmed Type lansoprazole 15 mg capsule,delayed 15 mg PO Q2D cap 03/08/19 01/31/20 History release atorvastatin 10 mg tablet 10 mg PO QPM #30 tab 11/02/19 01/31/20 Rx metoprolol succinate 50 mg 50 mg PO DAILY #90 tab 11/26/19 01/31/20 Rx tablet,extended release 24 hr lisinopril 5 mg tablet 5 mg PO DAILY #90 tab 01/19/20 01/31/20 Rx cholecalciferol (vitamin D3) 1,000 unit PO DAILY 01/31/20 01/31/20 History levothyroxine 75 mcg PO QAM 01/31/20 01/31/20 History metformin 1,000 mg PO QAM 01/31/20 01/31/20 History Patient History Medical History Chest pain (Resolved) Diabetes type 2, uncontrolled (Chronic) Hypercholesterolemia (Chronic) Hypertension (Chronic) Incomplete bladder emptying (Resolved) Left ventricular hypertrophy (Chronic) 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) Palpitation (Resolved) SOB (shortness of breath) (Chronic 12/06/13) Subclinical hypothyroidism (Acute) Vitamin D insufficiency (Chronic) Surgical History Status post surgery tx of fx of calcaneus Family History Father Myocardial infarction Congestive heart failure Diabetes Nephrolithiasis Mother Myocardial infarction Social History Smoking Status: Never smoker Second Hand Exposure: No; Hx Alcohol Use: No Hx Substance Use: No Preferred Language: Guinean Communication Ability: Effective Visual Impairment: No Limitations Hearing Ability: Normal [employer] Inspector Required: No Beliefs That Will Affect Care: None marital status: Current Living Situation: Alone current occupational status: employed current occupation: [employer] school Feels Safe at Home: Yes Dental Care, Regularly: Yes Physical Activity Frequency: 3-4 Times per Week Seatbelt Use: always Review of Systems Gastrointestinal: + abdominal pain (abdominal pain yesterday, now improved) and + bloating Physical Exam Physical Exam: awake/alert Constitutional: + obese Respiratory: normal respiratory effort Gastrointestinal (Abdomen): Inspection/Auscultation: + abdomen distended Percussion/Palpation: + abdomen tender (nontender to palpation in epigastric & RUQ) and abdomen soft Results & Data Vital Signs (Past 12 Hours) Vital Signs Temp Pulse Resp BP Pulse Ox 02/01/20 14:54 36.8 C 66 18 135/84 98 02/01/20 07:20 36.6 C 57 L 18 128/83 96 02/01/20 05:17 36.4 C L 59 L 18 121/76 97 NM hepatobiliary CLINICAL HISTORY: 54 years-old Male with cholecystitis. Acute right upper quadrant abdominal pain TECHNIQUE: Sequential anterior abdominal images were obtained through 105 minutes following the intravenous administration of 5.1 mCi of technetium-99m Choletec. COMPARISON: CT abdomen and pelvis 01/31/2020 FINDINGS: There is prompt, uniform accumulation of the tracer by the liver. There is normal filling of the intrahepatic ducts, common bile duct and normal excretion of the tracer into the duodenum. Moderate to large amount of enterogastric reflux. The gallbladder does not fill by 60 minutes. 2 mg of intravenous morphine sulfate was then administered intravenously. Additional imaging was obtained for another 45 minutes which still showed no accumulation of activity within the gallbladder. There is further progression of tracer activity within the bowel on the delayed images. IMPRESSION: 1. Nonvisualization of the gallbladder compatible with cystic duct obstruction. 2. Moderate to large amount of enterogastric reflux. ACT 112: Negative or not required by law. The above report was generated using voice recognition software. It may contain grammatical, syntax or spelling errors. Electronically signed by: Star Alas M.D. 02/01/2020 1:34 PM US gallbladder HISTORY: Pain. Nausea. upper abd pain COMPARISON: None. FINDINGS: The liver shows evidence for fatty replacement. Gallbladder is distended with edematous gallbladder wall at 8 mm. There is trace amount of small gallstones and sludge. Common bile lung measures 7 mm. The intrahepatic ducts are normal. Right kidney is negative for hydronephrosis. IMPRESSION: Thickened gallbladder wall at 8 mm combine with a small amount of gallbladder sludge and small gallstones. Fatty replacement of the liver. ACT 112: Negative or not required by law. The above report was generated using voice recognition software. It may contain grammatical, syntax or spelling errors. Electronically signed by: Timmy Mayer M.D. 02/01/2020 6:[address] OF THE ABDOMEN AND PELVIS WITH CONTRAST CLINICAL HISTORY: abd pain, colonoscopy today COMPARISON STUDY: Right upper quadrant ultrasound September 24, 2018. TECHNIQUE: Following IV administration of 118 mL of Optiray-320, axial images of the abdomen and pelvis were obtained from the lung bases to the proximal femurs. Images were reviewed in the axial, sagittal, and coronal planes. IV contrast was administered without complication. Automated exposure control was utilized for the study. A dose lowering technique was utilized adhering to the principles of ALARA. FINDINGS: Lung bases are unremarkable. No pneumatosis, free air or portal venous gas is present. There is probable fatty infiltration of the liver. Moderate gallbladder wall thickening is noted. There is minimal adjacent infiltration. There is no biliary or pancreatic ductal dilatation. There is no peripancreatic infiltration. The spleen and adrenal glands are unremarkable. A few renal cysts are noted. A 1.8 cm lesion within the midpole of the left kidney measures above water attenuation. There are left-sided parapelvic cysts. There is no hydronephrosis. Prostate is moderately enlarged. There is no evidence for a bowel obstruction. Caliber and wall thickness of small and large bowel are normal. The appendix is normal. No lymphadenopathy is present. There are several indeterminate sclerotic lesions within the bilateral iliac bones and the L3 vertebral body right iliac bone sclerotic focus could reflect a sclerotic lesion or harvest site. Post surgical findings within the lumbar spine are noted. IMPRESSION: 1. No free air. No bowel wall thickening. 2. Gallbladder wall thickening with adjacent infiltration. Right upper quadrant ultrasound is recommended to evaluate for acute cholecystitis. 3. Several indeterminate sclerotic lesions within the bilateral iliac bones and the L3 vertebral body. The right iliac bone focus could be postsurgical however metastatic disease, such as prostate, could have this appearance. This finding will be called/faxed to the ordering provider at time of dictation. 4. 1.8 cm left renal lesion. This favors a cyst however a small solid renal lesion could appear similar. A renal ultrasound is recommended for further evaluation. ACT 112: Negative or not required by law. Electronically signed by: Demond Mccarthy M.D. 02/01/2020 7:15 AM PG Care Time/CCT Total # of Minutes Spent Total Time Spent with Patient: Total time spent is greater than 50% in coordination of care (as documented) at patient's floor/unit and/or counseling patient: Coding Level of Care Code 60804 Inpt Consult Level 2 Diagnoses Elevated bilirubin R17 Cholelithiasis K80.20 Cholelithiasis location: gallbladder (1) Cholelithiasis Cholelithiasis location: gallbladder
--- NOTE | 2020-02-01 19:50 | Anesthesiology Consultation ---
Date of Service February 01, 2020 Assessment & Plan (1) Encounter for pre-operative examination: Chart Review Chart Review: Acceptable Risk for Surgery and Patient NOT seen in Pre Admission Testing Consults Requested none Additional Notes COVID test 02/01/2020 - negative History Surgery Operation Date: 02/02/20 11:30 Proposed Procedures p Laparoscopic Cholecystectomy with Cholangiogram - Paulino Gonsales MD Height/Weight Height: 5 ft 11 in Weight: 134.4 kg Allergies Allergy/AdvReac Type Severity Reaction Status Date / Time No Known Allergies Allergy Verified 01/31/20 20:48 Medications Home Medications Medication Instructions Recorded Confirmed Last Taken lansoprazole 15 mg capsule,delayed 15 mg PO Q2D cap 03/08/19 01/31/20 Unknown release atorvastatin 10 mg tablet 10 mg PO QPM #30 tab 11/02/19 01/31/20 Unknown metoprolol succinate 50 mg 50 mg PO DAILY #90 tab 11/26/19 01/31/20 Unknown tablet,extended release 24 hr lisinopril 5 mg tablet 5 mg PO DAILY #90 tab 01/19/20 01/31/20 Unknown cholecalciferol (vitamin D3) 1,000 unit PO DAILY 01/31/20 01/31/20 Unknown levothyroxine 75 mcg PO QAM 01/31/20 01/31/20 Unknown metformin 1,000 mg PO QAM 01/31/20 01/31/20 Unknown Active Medications Generic Name Dose Route Start Last Admin Trade Name Freq PRN Reason Stop Dose Admin Enoxaparin Sodium 40 mg 02/01/20 09:00 02/01/20 10:19 Lovenox SQ 03/02/20 08:59 40 mg QAM NIKO Administration Sodium Chloride 1,000 mls @ 80 mls/hr 02/01/20 05:17 02/01/20 17:40 Nss 1000ml IV 03/02/20 05:16 80 mls/hr .[id number] NIKO Administration Piperacillin Sod/Tazobactam 120 mls @ 30 mls/hr 02/01/20 10:00 02/01/20 17:40 Sod 4.5 gm/ Dextrose IV 02/11/20 09:59 30 mls/hr Q8H NIKO Administration Protocol Insulin Aspart 0 units 02/01/20 06:00 02/01/20 17:38 Novolog Flexpen SC 03/02/20 05:59 2 units Q6 NIKO Administration Insulin Glargine 12 units 02/01/20 09:00 02/01/20 09:05 Lantus Solostar Pen SC 03/02/20 08:59 Not Given BID NIKO Levothyroxine Sodium 75 mcg 02/01/20 06:30 02/01/20 06:34 Synthroid PO 03/02/20 06:29 75 mcg DAILYBB NIKO Administration Lisinopril 5 mg 02/01/20 09:00 02/01/20 14:25 Zestril PO 03/02/20 08:59 5 mg DAILY NIKO Administration Metoprolol Succinate 50 mg 02/01/20 09:00 02/01/20 08:50 Toprol Xl PO 03/02/20 08:59 Not Given DAILY NIKO Vitamin D 1,000 units 02/01/20 09:00 02/01/20 14:25 Vitamin D3 PO 03/02/20 08:59 1,000 units DAILY NIKO Administration Past Medical History Medical History Chest pain (Resolved) Diabetes type 2, uncontrolled (Chronic) Hypercholesterolemia (Chronic) Hypertension (Chronic) Incomplete bladder emptying (Resolved) Left ventricular hypertrophy (Chronic) 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) Palpitation (Resolved) SOB (shortness of breath) (Chronic 12/06/13) Subclinical hypothyroidism (Acute) Vitamin D insufficiency (Chronic) Past Family History Family History Father Myocardial infarction Congestive heart failure Diabetes Nephrolithiasis Mother Myocardial infarction Past Surgical History Surgical History Status post surgery tx of fx of calcaneus Social History Smoking Status: Never smoker tobacco type: cigars Hx Alcohol Use: No Hx Substance Use: No substance use type: does not use Physical Exam Vital Signs Last Vital Signs Temp 36.8 C 02/01/20 14:54 Pulse 66 02/01/20 14:54 Resp 18 02/01/20 14:54 BP 135/84 02/01/20 14:54 Pulse Ox 98 02/01/20 14:54 Testing Laboratory Results 01/31/20 20:05 01/31/20 20:05 PT 10.5 Seconds (9.0-12.0) 01/31/20 20:05 INR 1.0 (0.9-1.1) 01/31/20 20:05 APTT 30.5 Seconds (21.0-31.0) 01/31/20 20:05 Hemoglobin A1c 4.9 % (4.5-5.6) 01/31/20 20:05 02/01/20 02/01/20 17:35 14:09 POC Glucose 149 H 118 H Trop <0.015 on 01/31/2020 Electrocardiogram Date: 01/31/20 Findings: + SB @ (55) Low voltage QRS, Inferior infarct, age undetermined, When compared with ECG of 07-DEC-2013 06:12, Inferior infarct is now Present, Inverted T waves have replaced nonspecific T wave abnormality in Inferior leads Chest X-Ray Date: 01/31/20 Findings: + NAD
[2020-02-01] MEDS: TAMSULOSIN HCL 0.4 MG CAP PO SCH (20:03)
[2020-02-01] MEDS: ATORVASTATIN 10 MG TAB PO SCH (20:03)
[2020-02-02] MEDS: INSULIN ASPART 100 UNITS/ML 3 ML PEN SC SCH ×4 (00:07→17:54)
[2020-02-02] MEDS: PIPERACILLIN/TAZOBACTAM 4.5 GM in DEXTROSE 5% 100 ML IV SCH ×3 (02:29→22:30)
[2020-02-02] MEDS: SODIUM CHLORIDE 0.9% 1000ML 1,000 ML IV SCH (05:56)
[2020-02-02] MEDS: LEVOTHYROXINE SODIUM 75 MCG TABLET PO SCH (06:23)
[2020-02-02] MEDS: INSULIN GLARGINE SOLOSTAR 100 UNITS/ML 3 ML PEN SC SCH ×2 (07:40→21:09)
[2020-02-02] MEDS: METOPROLOL SUCC 50MG EXT REL TAB PO SCH (07:40)
[2020-02-02] MEDS: lisinopriL 5 MG TAB PO SCH (07:40)
[2020-02-02] MEDS: PANTOprazole 40 MG TAB PO SCH (07:40)
[2020-02-02] MEDS: CHOLECALCIFEROL 1,000 UNITS 25 MCG TAB PO SCH (07:40)
[2020-02-02 08:28] LABS: Basophils # (auto) 0.02 K/uL (0-0.2); Basophils % (auto) 0.4 %; Eosinophils # (auto) 0.03 K/uL (0-0.5); Eosinophils % (auto) 0.6 %; Hematocrit (blood only) 38.9 % (42-52); Hemoglobin 13.9 g/dL (14.0-18.0); Immature Granulocytes # (auto) 0.01 K/uL (0.00-0.02); Immature Granulocytes % (auto) 0.2 %; Lymphocytes # (auto) 1.02 K/uL (1.2-3.4); Lymphocytes % (auto) 19.2 %; Mean Corpuscular Hemoglobin 30.3 pg (25-34); Mean Corpuscular Hgb Conc 35.7 g/dL (32-36); Mean Corpuscular Volume 84.9 fL (80-100); Mean Platelet Volume 10.6 fL (7.4-10.4); Monocytes % (auto) 11.3 %; Neutrophils # (auto) 3.64 K/uL (1.4-6.5); Neutrophils % (auto) 68.3 %; Platelet Count 158 K/uL (130-400); RDW Coefficient of Variation 13.7 % (11.5-14.5); RDW Standard Deviation 41.9 fL (36.4-46.3); Red Blood Count 4.58 M/uL (4.7-6.1); White Blood Count 5.32 K/uL (4.8-10.8)
[2020-02-02 09:01] LABS: Albumin Level 3.9 gm/dl (3.4-5.0); BUN Creatinine Ratio 5.5 (10-20); Calcium 8.2 mg/dl (8.5-10.1); Creatinine Clr Calc Pharmacy 98.5 ml/min; Est GFR (Non-African American) 68.1; Potassium 3.3 mmol/L (3.5-5.1)
[2020-02-02 09:09] LABS: Albumin Globulin Ratio 1.2 (0.9-2); Bilirubin,Total 2.9 mg/dl (0.2-1); Globulin 3.4 gm/dl (2.5-4.0); Total Protein 7.3 gm/dl (6.4-8.2)
[2020-02-02] MEDS ORDERED: LIDOCAINE HCL 2% 2 ML VIAL/AMP(20MG/ML) INFIL ONE (09:34)
[2020-02-02] MEDS ORDERED: NEOSTIGMINE METHYLSULFATE 5 MG/5 ML SYR ONE (09:34)
[2020-02-02] MEDS ORDERED: GLYCOPYRROLATE 0.2 MG/ML VIAL ONE (09:34)
[2020-02-02] MEDS ORDERED: SUCCINYLCHOLINE CHLORIDE 20 MG/ML 10 ML VIAL IV ONE (09:34)
[2020-02-02] MEDS ORDERED: ROCURONIUM BROMIDE 10 MG/ML 5 ML VIAL IV ONE (09:34)
[2020-02-02] MEDS ORDERED: PROPOFOL IV EMULSION 10 MG/ML 20 ML VIAL IV ONE ×2 (09:34→11:44)
[2020-02-02] MEDS ORDERED: MIDAZOLAM HCL 1 MG/ML 2ML VIAL ONE (09:34)
[2020-02-02] MEDS ORDERED: fentaNYL citrate 100 MCG/2 ML VIAL ONE ×3 (09:34→12:21)
[2020-02-02] MEDS ORDERED: ONDANSETRON INJ 2 MG/ML 2 ML VIAL ONE (09:34)
[2020-02-02] MEDS ORDERED: DEXAMETHASONE SOD INJ 4 MG/ML VIAL ONE (09:34)
--- NOTE | 2020-02-02 10:19 | Medical Student Progress Note ---
Date of Service February 02, 2020 Assessment & Plan (1) Epigastric abdominal pain: Patient is a 54-year-old male with past medical history of T2DM, hypertension, hypercholesterolemia, subclinical hypothyroidism, and vitamin D deficiency on Hospital Day #2 for RUQ/epigastric abdominal pain concerning for cholecystitis. RUQ/Epigastric Pain 2/2 cholecystitis - 01/31 HIDA scan: no gallbladder visualization, cystic duct obstruction, moderate-large enterogastric reflux - Surgery Consulted: s/p laparoscopic cholecystectomy & cholangiogram on 02/[address] Gonsales - Transition to low fat diet once recovered from surgery. No alcohol for at least 4 weeks. - T bili 2.9 (uptrending from 1.9 on 01/31) Left Renal Lesion - 01/31 CT Abdomen/Pelvis with Contrast: 1.8 cm left renal lesion questionable for cyst vs. small solid lesion - 01/31 Renal U/s: simple cyst, benign. No followup needed. Sclerotic Iliac Lesions - 01/31 CT Abdomen/Pelvis with Contrast: bilateral sclerotic lesions at iliac bones and L3 vertebral body. Enlarged prostate. - PSA normal. - Consulted Urology: Low suspicion for prostate mets, lesions are not osteoblastic. - Discussed with Oncology. Biopsy unable to be performed at [facility], closest fa cility able to perform biopsy would be [facility]. Recommend followup for further management as outpatient. Lower Urinary Tract Symptoms - Pt with some chronic difficulty voiding likely 2/2 enlarge dprostate - Per urology continue flomax daily - Followup with urology as outpatient Type 2 Diabetes Mellitus, Controlled - A1c in September 2019: 4.9 - Fasting BS (02/01), 125 (01/31) - Resume lantus + SSI once able to tolerate post-op diet - Hold patient's home metforminn Hypertension - Continue lisinopril 5 mg, metoprolol succinate 50 mg Hyperlipidemia - Continue atorvastatin 10 mg Hypothyroidism TSH 3.39 Continue levothyroxine 75 mcg Vitamin D3 Deficiency - Continue cholecalciferol 1000 PO daily Hypokalemia - K 3.3 this morning - 10meq rider x2 given - KCl 20meq PO daily - BMP daily FEN/GI: NSS@80, d/c fluids once tolerating PO DVT prophylaxis: SCD thigh Full code Dispo: MedSurg Subjective Patient is a 54 year old patient who presented to the ED on 01/30 with epigastric pain s/p colonoscopy at 10 AM yesterday. He went to have [place] food for lunch and at 4 PM, began to have sharp, non-radiating pain with 8-9/10 severity. Similar pain presented last week after eating a turkey sandwich, which only lasted for 20-25 minutes. He endorsed bloating and nausea and denied fever, vomiting, diarrhea, chills, chest pain, shortness of breath, urinary symptoms. Physical Exam Constitutional: WD/WN, vitals as above well developed, well nourished, + mo rbidly obese and cooperative; no acute distress Eyes: PERRL, conjunctivae normal, anicteric sclerae + anicteric sclerae; normal pupil size ENMT: external ear and nose normal, oropharynx normal Neck: normal visual inspection Respiratory: normal respiratory effort, lungs clear to auscultation normal respiratory effort; no respiratory distress and no cough Auscultation: lungs clear to auscultation bilaterally; no crackles, no rales, no rhonchi and no wheezes Cardiovascular: RRR, no murmur, no edema Rate/Rhythm: regular rate and regular rhythm Heart Sounds: normal S1 and normal S2 Vessels: radial pulses present Extremities: normal capillary refill; no edema Gastrointestinal (Abdomen): normal bowel sounds, soft, nontender, no hepatosplenomegaly Inspection/Auscultation: abdomen normal to inspection, + abdomen distended and normal bowel sounds Percussion/Palpation: abdomen soft; abdomen nontender, no guarding and abdomen not rigid Skin: no rashes, warm and dry Psychiatric: A+Ox3, euthymic affect Results & Data Medications Administered Atorvastatin Calcium (Lipitor) 10 mg PO QPM NIKO Stop: 03/02/20 20:59 Last Admin: 02/01/20 20:03 Dose: 10 mg Documented by: [id number] Enoxaparin Sodium (Lovenox) 40 mg SQ QAM NIKO Stop: 03/02/20 08:59 Last Admin: 02/01/20 10:19 Dose: 40 mg Documented by: [id number] Sodium Chloride (Nss 1000ml) 1,000 mls @ 80 mls/hr IV .[id number] NIKO Stop: 03/02/20 05:16 Last Admin: 02/02/20 05:56 Dose: 80 mls/hr Documented by: [id number] Infusion: 02/02/20 05:56 Dose: 80 mls/hr Documented by: [id number] Admin: 02/01/20 17:40 Dose: 80 mls/hr Documented by: [id number] Infusion: 02/01/20 17:40 Dose: 80 mls/hr Documented by: [id number] Admin: 02/01/20 06:04 Dose: 80 mls/hr Documented by: [id number] Piperacillin Sod/Tazobactam (Sod 4.5 gm/ Dextrose) 120 mls @ 30 mls/hr IV Q8H NIKO; Protocol Stop: 02/11/20 09:59 Last Infusion: 02/02/20 06:03 Dose: 0 mls/hr Documented by: [id number] Admin: 02/02/20 02:29 Dose: 30 mls/hr Documented by: [id number] Infusion: 02/01/20 21:50 Dose: 0 mls/hr Documented by: [id number] Admin: 02/01/20 17:40 Dose: 30 mls/hr Documented by: [id number] Infusion: 02/01/20 14:19 Dose: 0 mls/hr Documented by: [id number] Admin: 02/01/20 10:19 Dose: 30 mls/hr Documented by: [id number] Insulin Aspart (Novolog Flexpen) 0 units SC Q6 [facility] Stop: 03/02/20 05:59 Last Admin: 02/02/20 06:04 Dose: Not Given Documented by: [id number] Cosigned by: [id number] Admin: 02/02/20 00:07 Dose: Not Given Documented by: [id number] Cosigned by: [id number] Admin: 02/01/20 17:38 Dose: 2 units Documented by: [id number] Cosigned by: [id number] Admin: 02/01/20 14:19 Dose: Not Given Documented by: [id number] Cosigned by: [id number] Admin: 02/01/20 06:08 Dose: Not Given Documented by: [id number] Cosigned by: [id number] Insulin Glargine (Lantus Solostar Pen) 12 units SC BID [facility] Stop: 03/02/20 08:59 Last Admin: 02/02/20 07:40 Dose: Not Given Documented by: [id number] Admin: 02/01/20 21:42 Dose: Not Given Documented by: [id number] Admin: 02/01/20 09:05 Dose: Not Given Documented by: [id number] Levothyroxine Sodium (Synthroid) 75 mcg PO DAILYBB NIKO Stop: 03/02/20 06:29 Last Admin: 02/02/20 06:23 Dose: Not Given Documented by: [id number] Admin: 02/01/20 06:34 Dose: 75 mcg Documented by: [id number] Lisinopril (Zestril) 5 mg PO DAILY NIKO Stop: 03/02/20 08:59 Last Admin: 02/02/20 07:40 Dose: Not Given Documented by: [id number] Admin: 02/01/20 14:25 Dose: 5 mg Documented by: [id number] Metoprolol Succinate (Toprol Xl) 50 mg PO DAILY NIKO Stop: 03/02/20 08:59 Last Admin: 02/02/20 07:40 Dose: Not Given Documented by: [id number] Admin: 02/01/20 08:50 Dose: Not Given Documented by: [id number] Pantoprazole Sodium (Protonix) 40 mg PO Q2D@0900 NIKO Stop: 03/03/20 08:59 Last Admin: 02/02/20 07:40 Dose: Not Given Documented by: [id number] Tamsulosin HCl (Flomax) 0.4 mg PO HS NIKO Stop: 03/02/20 20:59 Last Admin: 02/01/20 20:03 Dose: 0.4 mg Documented by: [id number] Vitamin D (Vitamin D3) 1,000 units PO DAILY NIKO Stop: 03/02/20 08:59 Last Admin: 02/02/20 07:40 Dose: Not Given Documented by: [id number] Admin: 02/01/20 14:25 Dose: 1,000 units Documented by: [id number] Supervising Attestation Medical student Supervision Note: I independently interviewed and examined the patient and verified the ramos history and physical, reviewed labs and image studies, discussed the case with Heavenly Stone and agree with the findings and care plan. s/p jonathan. anticipate d/c home in am outpatient evaluation of sclerotic bone lesions. Resident Activity Tracking Resident Involvement: Resident Care Provided Care Provided: Adult [facility] Medicine
--- NOTE | 2020-02-02 10:24 | History & Physical Bridge Note ---
Date of Service February 02, 2020 History & Physical Bridge Note I have examined the patient, reviewed the History & Physical and in the interval since the performance of the History & Physical I have noted the following changes of clinical significance: no changes noted Comfortable no abdominal distention minimal right upper quadrant guarding We will proceed laparoscopic cholecystectomy cholangiogram possible open risk and complication explained to the patient including bleeding infection injury to other organs and he would like to proceed accordingly Permit was signed and witnessed
[2020-02-02] MEDS ORDERED: LIDOCAINE/EPINEPHRINE 1% 20 ML VIAL ONE (10:32)
[2020-02-02] MEDS ORDERED: fentaNYL citrate 100 MCG/2 ML VIAL IV PRN (11:17)
[2020-02-02] MEDS ORDERED: ONDANSETRON INJ 2 MG/ML 2 ML VIAL IV PRN (11:17)
[2020-02-02] MEDS ORDERED: ePHEDrine sulfate 50 MG/ML AMP IV PRN (11:17)
[2020-02-02] MEDS ORDERED: ATROPINE SULFATE 0.1 MG/ML 10ML SYR IV PRN (11:17)
[2020-02-02] MEDS ORDERED: HYDROmorphone INJ 2 MG/ML SYR/VIAL IV PRN (11:17)
[2020-02-02] MEDS ORDERED: OPTIRAY 300 IV PRN (11:31)
--- NOTE | 2020-02-02 12:06 | Fluoroscopy Report ---
[place] cholangiogram OR CLINICAL HISTORY: CHOLANGIOGRAM COMPARISON STUDY: FLUOROSCOPY TIME: 6 seconds. NUMBER OF FLUOROSCOPIC IMAGES: 1 FINDINGS: A single image from intraoperative radiograph is provided for interpretation. The common bi le duct is of normal caliber. There are no filling defects to indicate calculi. There is free flow in to the duodenum. IMPRESSION: No calculi identified. Free flow into the duodenum. ACT 112: Negative or not required by law. Electronically signed by: Kelvin Sunshine M.D. 02/02/2020 12:05 PM
--- NOTE | 2020-02-02 12:21 | Post Operative Brief Note ---
[facility] Immediate Post Op with CF Date of Surgery February 02, 2020 Pre & Post Diagnosis Operation Date: 02/02/20 10:10 Pre-Op Diagnosis: CHOLEYCYSTITIS Post-Op Diagnosis: CHOLEYCYSTITIS I identified the patient and participated in the time-out.: Yes Procedure Operation Date: 02/02/20 10:10 Actual Procedures p Laparoscopic Cholecystectomy with Cholangiogram - Paulino Gonsales MD Surgeon Paulino Gonsales MD Seating Captain Elvis GARCIA Estimated Blood Loss 15 Findings Consistent with Post-Op Diagnosis Specimens Specimen Description: A: Gallbladder 1. Gallbladder fluid for culture
--- NOTE | 2020-02-02 12:39 | Operative Report ---
PG Post Operative Report Pre & Post Diagnosis Operation Date: 02/02/20 10:10 Pre-Op Diagnosis: CHOLEYCYSTITIS Post-Op Diagnosis: CHOLEYCYSTITIS I identified the patient and participated in the time-out.: Yes Procedure Operation Date: 02/02/20 10:10 Actual Procedures p Laparoscopic Cholecystectomy with Cholangiogram - Paulino Gonsales MD Patient was brought into the operating theater general trach anesthesia supine position the abdomen was prepped byline solution properly draped a timeout was had patient was identified made a small incision supraumbilically sufficient to accommodate a 5 mm trocar we entered initially with a Veress needle CO2 insufflated the patient had a very less abdominal wall therefore I just kept the pressure is about 12 mmHg once is been performed a 5 mm trocar was inserted point of interest bacteroids identified on direct visualization 5 mm epigastric port and 2 5 mm subcostal ports were placed with preemptive local analgesic and direct visualization at this point we identified the omentum that was draped over the liver omental adhesions were adherent to the gallbladder some of them are fine similar more course we were able to take it down using electrocautery were able to elevate the gallbladder which was a little bit tense but not gangrenous the wall was a little bit prominent therefore we are able then to aspirate easily the point that we were able to manage it more securely to elevated and work towards the neck of the gallbladder which was done mostly blunt dissection identified the cystic duct coming off the gallbladder that from the artery and the window that was easily identifiable we clipped the artery proximally twice once distally and we clipped the cystic duct at its takeoff with a 5 mm clip small opening cystic duct was made placed 4 mm ureteral catheter transverse to the abdominal wall and Angiocath held in place with a grasper serial x-rays were taken which show free flow and duodenum no obstruction the cystic duct was quite long Cholangiocath was then removed we choked up on the cystic duct more and were able to clip it to 5 mm clips divided this point we divided the artery elevated the gallbladder we will try to leave as much is posterior peritoneum is intact some edema on the wall was appreciated we did not enter the wall patient had a moderate amount of oozing coming off the liver which we were able to control electrocautery the gallbladder was then elevated completely off the liver the gallbladder fossa was checked hemostasis appear satisfactory gallbladder was then placed in an Endopouch and taken out intact through the epigastric port we again checked the subhepatic suprahepatic area were checked from stasis appears satisfactory debris the oozing that we appreciated to actually subsided there was no active bleeding at this point we placed the camera right upper quadrant to visualize the umbilical entry which no adhesions were appreciated and direct visualization we took the subcostal ports no bleeding was identified in the epigastric port and the umbilical port last we placed a fascial stitch of 0 Vicryl [id number] through the epigastric port since we had enlarged the incision a bit since the gallbladder was moderately edematous and to deliver out of the wounds we then closed the wound as stated above and four 4 Monocryl Steri-Strips applied procedure was tolerated well by the patient estimated blood loss 15 cc addendum Elvis GARCIA was present throughout the procedure and help with retraction exposure and wound closure Surgeon Paulino Gonsales MD [employer] Elvis GARCIA Estimated Blood Loss 15 Findings Consistent with Post-Op Diagnosis Specimens gallbladder and contents c and s Description of Procedure merda I attest to the content of the Intraoperative Record and any orders documented therein. Any exceptions are noted below.
[2020-02-02] MEDS: POTASSIUM CHLORIDE / WTR 10 MEQ/100 ML PLCT IV SCH ×2 (12:49→15:55)
--- NOTE | 2020-02-02 13:22 | Anesthesiology Progress Note ---
Date of Service February 02, 2020 Anesthesia Post Procedure Vital Signs Vital Signs: Temp Pulse Pulse Resp BP BP Pulse Ox 02/02/20 13:10 67 23 128/74 96 02/02/20 13:00 74 21 107/49 L 95 02/02/20 12:50 71 24 131/70 99 02/02/20 12:41 36.8 C 83 16 132/54 L 95 02/02/20 09:46 37.0 C 77 18 108/86 95 02/02/20 07:37 36.7 C 82 20 118/78 95 02/02/20 04:30 36.9 C 101 H 18 169/85 H 96 02/01/20 23:36 37.2 C 81 20 150/81 H 95 02/01/20 14:54 36.8 C 66 18 135/84 98 Pain Intensity Chest: Pain Intensity: 7 Transfer of Care Handoff Completed per policy Notes Mental Status: alert / awake / arousable Patient Amnestic to Procedure: Yes Nausea / Vomiting: adequately controlled Pain: adequately controlled Airway Patency, RR, SpO2: stable & adequate BP & HR: stable & adequate Hydration State: stable & adequate Anesthetic Complications: no major complications apparent
[2020-02-02] MEDS ORDERED: MoRPHine SULFATE 2 MG/ML CARP IV PRN (13:48)
[2020-02-02] MEDS ORDERED: OXYCODONE/ACETAMINOPHEN 5mg/325mg TAB PO PRN (13:48)
[2020-02-02] MEDS: LACTATED RINGER'S 1,000 ML IV SCH (14:06)
[2020-02-02] MEDS: MoRPHine SULFATE 4 MG/ML 1 ML CARP\\VIAL IV PRN ×2 (14:16→17:53)
[2020-02-02] MEDS ORDERED: PROMETHAZINE HCL 12.5 MG in SODIUM CHLORIDE 0.9% 50 ML IV PRN (14:38)
[2020-02-02] MEDS ORDERED: PROMETHAZINE HCL 12.5 MG in SODIUM CHLORIDE 0.9% 50 ML IV ONE (15:00)
[2020-02-02] MEDS: ACETAMINOPHEN 325 MG TAB PO PRN ×2 (18:28→22:30)
[2020-02-02] MEDS ORDERED: IBUPROFEN 600 MG TAB PO PRN (19:48)
[2020-02-02] MEDS: ATORVASTATIN 10 MG TAB PO SCH (19:57)
[2020-02-02] MEDS: TAMSULOSIN HCL 0.4 MG CAP PO SCH (19:58)
[2020-02-03] MEDS: LACTATED RINGER'S 1,000 ML IV SCH (01:40)
[2020-02-03] MEDS: PIPERACILLIN/TAZOBACTAM 4.5 GM in DEXTROSE 5% 100 ML IV SCH ×3 (05:37→22:22)
[2020-02-03] MEDS: LEVOTHYROXINE SODIUM 75 MCG TABLET PO SCH (05:38)
--- NOTE | 2020-02-03 06:27 | Surgery Progress Note ---
Date of Service February 03, 2020 Assessment & Plan (1) Cholelithiasis: Operative findings were discussed with the patient We will reevaluate later today but most likely the patient can be discharged from the surgical point of view we will follow-up in the office in 1 week no restriction on diet no driving for 3 days no lifting anything heavier than 10 pounds for 1 week Advised the patient that it may take full 6 weeks to go back to normal but there should be no restrictions on his activity except the pattern of feeling good sometimes tired is all related to the postoperative healing Present on Admission?: Yes Subjective Sitting in bed without any complaints the nausea that he had yesterday is pretty much resolved and had a fairly good night Physical Exam Physical Exam: Alert coherent in no distress Abdomen completely benign Trocar sites Steri-Strips intact without any drainage Results & Data Vital Signs (Past 12 Hours) Vital Signs Temp Pulse Pulse Resp BP Pulse Ox 02/03/20 04:50 36.8 C 68 113/65 02/02/20 22:00 37.5 C 104 H 18 142/76 H 94 PG Care Time/CCT Total # of Minutes Spent Total Time Spent with Patient: Total time spent is greater than 50% in coordination of care (as documented) at patient's floor/unit and/or counseling patient: Coding Level of Care Code None Diagnoses Cholelithiasis K80.20 Cholelithiasis location: gallbladder (1) Cholelithiasis Cholelithiasis location: gallbladder
[2020-02-03] MEDS: POTASSIUM CHLORIDE 20 MEQ TABCR PO SCH (08:03)
[2020-02-03] MEDS: INSULIN GLARGINE SOLOSTAR 100 UNITS/ML 3 ML PEN SC SCH ×2 (08:04→20:18)
[2020-02-03] MEDS: CHOLECALCIFEROL 1,000 UNITS 25 MCG TAB PO SCH (08:04)
[2020-02-03] MEDS: METOPROLOL SUCC 50MG EXT REL TAB PO SCH (08:04)
[2020-02-03] MEDS: lisinopriL 5 MG TAB PO SCH (08:04)
--- NOTE | 2020-02-03 08:11 | Electrocardiogram Report ---
Test Reason : Blood Pressure : / mmHG Vent. Rate : 055 BPM Atrial Rate : 055 BPM P-R Int : 148 ms QRS Dur : 082 ms QT Int : 454 ms P-R-T Axes : -04 -10 -17 degrees QTc Int : 434 ms Sinus bradycardia Low voltage QRS Inferior infarct , age undetermined Abnormal ECG When compared with ECG of 07-DEC-2013 06:12, Inferior infarct is now Present Inverted T waves have replaced nonspecific T wave abnormality in Inferior leads Confirmed by Lauri Camp ([id number]) on 02/03/2020 8:10:57 AM Referred By: REFERRED SELF Confirmed By:Lauri Camp
[2020-02-03 08:20] LABS: Hematocrit (blood only) 36.1 % (42-52); Hemoglobin 12.9 g/dL (14.0-18.0); Mean Corpuscular Hemoglobin 30.8 pg (25-34); Mean Corpuscular Hgb Conc 35.7 g/dL (32-36); Mean Corpuscular Volume 86.2 fL (80-100); Mean Platelet Volume 10.9 fL (7.4-10.4); Platelet Count 142 K/uL (130-400); RDW Standard Deviation 44.1 fL (36.4-46.3); Red Blood Count 4.19 M/uL (4.7-6.1); White Blood Count 8.02 K/uL (4.8-10.8)
[2020-02-03] MEDS: INSULIN ASPART 100 UNITS/ML 3 ML PEN SC SCH ×4 (08:47→20:16)
[2020-02-03 09:01] LABS: Albumin Level 3.3 gm/dl (3.4-5.0); BUN Creatinine Ratio 7.8 (10-20); Calcium 8.4 mg/dl (8.5-10.1); Creatinine Clr Calc Pharmacy 98.5 ml/min; Est GFR (Non-African American) 68.1; Potassium 3.5 mmol/L (3.5-5.1)
[2020-02-03 09:14] LABS: Bilirubin Direct 0.4 mg/dl (0-0.2); Bilirubin,Total 3.9 mg/dl (0.2-1); Total Protein 6.6 gm/dl (6.4-8.2)
--- NOTE | 2020-02-03 09:34 | Discharge Summary ---
Date of Service February 03, 2020 Admission HPI Per Admitting Provider 54-year-old male with past medical history DM 2, hypertension, hypercholesterolemia, subclinical hypothyroidism, vitamin D deficiency presents with concerns of epigastric abdominal pain. Earlier in the morning patient had a colonoscopy after which he was eating [place] [employer] food for lunch. Around 4 PM patient noted a sharp constant pain that lasted for about an hour, nonradiating. Patient notes that he feels very bloated. Severity 8 or 9 out of 10 on pain scale. Previous similar such occurrence last when patient was eating a turkey sandwich. No known exacerbating or alleviating factors. Associated naus ea. Patient otherwise denies any fevers, vomiting, diarrhea, chills, chest pain, shortness of breath, urinary symptoms, no sick contacts or recent travel anywhere. Patient with no other acute concerns or complaints. At time of my evaluation patient notes he is no longer having abdominal pain, 0 out of 10. Pertinent labs: Glucose 125, phosphorus 2.4, T bili 1.9, direct bili 0.4, troponin negative, lipase/liver enzymes WNL CT abdomen pelvis with contrast ([facility]): The gallbladder is fully distended with slight wall thickening measuring 5-6 mm. No calcified gallstones are seen. There is mild fatty infiltration of the liver and hepatomegaly with the liver measuring 21 cm craniocaudad. No focal liver lesion is seen. The spleen is borderline enlarged measuring 15 cm. No splenic lesion is seen. The pancreas, adrenal glands, and kidneys appear nonacute. No hydronephrosis or ureterolithiasis is seen. US gallbladder ([facility]): The gallbladder is mildly dilated with a thickened wall measuring 8 mm. There are several tiny gallstones along the gallbladder wall and sludge. Sonographic Hendrickson sign is negative. The common bile duct is nondilated measuring 7 mm. ER course: IV acetaminophen 1 g, IV diphenhydramine 25 mg, IV famotidine 20 mg, IV morphine 2 mg / 4 mg, IV prochlorperazine, NSS 1.5 L Surgical history: No prior abdominal surgeries Social history: Denies tobacco use. Social alcohol use. Denies any illicit drug use Admission Exam Per Admitting Provider Constitutional: WD/WN, vitals as above Eyes: PERRL, conjunctivae normal, anicteric sclerae ENMT: external ear and nose normal, oropharynx normal Respiratory: normal respiratory effort, lungs clear to auscultation Cardiovascular: RRR, no murmur, no edema Gastrointestinal (Abdomen): normal bowel sounds, soft, nontender, no hepatosplenomegaly Inspection/Auscultation: + abdomen distended Percussion/Palpation: abdomen soft; no guarding Skin: no rashes, warm and dry Psychiatric: A+Ox3, euthymic affect Discharge Exam General: A&Ox3. NAD. Cooperative. HEENT: Atraumatic, normocephalic. Pulm: CTAB A&P. -wheezes, -rales, -rhonchi. Symmetrical chest rise. No increase work of breathing. No respiratory distress. Cardiac: RRR, -mrg. Radial pulses intact and symmetrical. Abdominal: Mild typani, mild tenderness at surgical incisions which are clean, dry, and withotu dehiscence/erythema/discharge. Otherwise NT, bowel sounds intact. Discharge Data Allergies Allergy/AdvReac Type Severity Reaction Status Date / Time No Known Allergies Allergy Verified 01/31/20 20:48 Consultations 02/01/20 00:28 ED Decision to Admit Stat 02/01/20 09:46 Consult Urology Routine 02/01/20 15:09 Consult General Surgery Routine Procedures Performed Operation Date: 02/02/20 10:10 Actual Procedures p Laparoscopic Cholecystectomy with Cholangiogram - Paulino Gonsales MD Ordered Studies 01/31/20 22:10 CT abd pelvis IV con only Urgent 01/31/20 23:12 US gallbladder Urgent 02/01/20 13:30 US renal/blad retro comp Routine 02/02/20 11:30 FL cholangiogram OR Routine Hospital Course (1) Epigastric abdominal pain: Patient is a 54-year-old male with past medical history of T2DM, hypertension, hypercholesterolemia, subclinical hypothyroidism, and vitamin D deficiency presented with RUQ/epigastric abdominal pain concerning for cholecystitis. RUQ/Epigastric Pain 2/2 cholecystitis Shailesh is a 54-year-old male who presented with right upper quadrant and epigastric pain with a history of pain incited with meals, and his most recent episode incited by nauseous. His lab work did not show transaminitis or an elevated alkaline phosphatase but did show elevated bilirubin. A CT scan showed a nondistended gallbladder but with thickened carroll. Follow-up HIDA scan showed cystic duct obstruction and moderate to large enterogastric reflux consistent with gallbladder disease, surgery was consulted and he underwent an uncomplicated laparoscopic cholecystectomy with Dr. Herman daily. He was transitioned successfully to a low-fat diet following recovery from surgery, and clinically improved. He was discharged to follow-up with surgery in 1 week and with his PCP. He was advised to maintain a low-fat diet for approximately 4 weeks and abstain from alcohol, but that most patients are able to return to a normal diet after recovery. Left Renal Lesion On CT abdomen and pelvis for his right upper quadrant pain as noted above a 1.8 cm left renal lesion questionable for cyst versus small solid lesion was appreciated. Follow-up ultrasound showed a simple benign cyst which was not thought to be cancerous or premalignant, and does not require any regular follow-up. Sclerotic Iliac Lesions On his CT abdomen/pelvis for right upper quadrant pain as above bilateral sclerotic lesions at the iliac bones and the L3 vertebral body were appreciated along with an enlarged prostate. His PSA was normal. Urology was consulted and felt that this was likely not consistent with prostate mets which would look blastic in nature. Follow-up was discussed with oncology, biopsy is not able to be performed at [facility], closest facility able to perform this would likely be [place]. It was recommended that he follow-up with his primary care physician to have further imaging or biopsy arranged as an outpatient. He is clinically stable and was discharged to follow-up with his outpatient provider. Lower Urinary Tract Symptoms Shailesh endorses chronic difficulty voiding and a moderately enlarged prostate was appreciated on his imaging. PSA was normal, although slightly increased from previous. Per urology he was started and continued on Flomax daily and will follow-up with urology as an outpatient. No prostate biopsy was recommended during admission. Type 2 Diabetes Mellitus, Controlled Justifies a history of type 2 diabetes well controlled with his last A1c of 4.9. He was placed on Lantus and SSI with adequate glycemic control during admissi on, and was discharged to resume his [employer] doses of metformin. Hypertension - Continued lisinopril 5 mg, metoprolol succinate 50 mg Hyperlipidemia - Continued atorvastatin 10 mg Hypothyroidism TSH 3.39 Continued levothyroxine 75 mcg Vitamin D3 Deficiency - Continued cholecalciferol 1000 PO daily Hypokalemia Transient hypokalemia to 3.3, resolved following 1 dose of IV and 1 dose of oral repletion. No other signs of kidney disease. FEN/GI: NSS@80, d/c fluids once tolerating PO DVT prophylaxis: SCD thigh Full code Dispo: MedSurg Discharge Plan Discharge Items Patient Disposition: Home - Self-Care Reason For Visit: CHOLEYCYSTITIS Discharge Diagnosis: laparoscopic cholecystectomy Activity: Per Instructions section Lifting: No more than 10 pounds Bathing Comment: may shower; no tub soaks Driving/Machine Use: Resume 3 days after discharge Non-emergency contact: Primary Care Provider Call non-emergency contact if: you have any medication questions, your symptoms worsen, your pain is not controlled, your pain is worsening, your pain is unusual for you, your pain is concerning for you, you have a fever, your temperature is above 101.5, your wound has increased redness, your wound has increased drainage and your wound pain has increased Follow-up/Referrals: Cheng Montes CRNP [Primary Care Provider] - Paulino Gonsales MD [Surgeon] - (Please call to schedule follow up in clinic within 1 week) Diet: Low Fat Addtl Attending Provider Instructions: You are seen in the hospital for abdominal pain and found to have a inflamed gallbladder. Your gallbladder was surgically removed, your surgery went well and was uncomplicated. During her work-up you were found to have a small cyst on your kidney. Follow-up ultrasound showed that this was a simple cyst which is not cancerous or dangerous, and does not require further follow-up. Your imaging also showed 2 areas of sclerosis on your pelvis and 1 on a bone in your back which require further follow-up. This was discussed with urology as you have had a slightly enlarged prostate, but based on the appearance of the spots it was felt that these were not likely to be consistent with prostate cancer but should still be followed up as an outpatient. You have small white bandages over your incisions called steri-strips. You may shower with these on, they will fall off on their own within 7-10 days Please maintain a low-fat diet for the next 4 weeks. Following gallbladder removal most patients are eventually able to resume a normal diet, but since the gallbladder helps digest and process fat this should be limited for the first 4 weeks while your body heals and adjusts. Please also avoid alcohol during this time. You have had a new medication prescribed, Flomax, to help your urination which is been affected by a slightly enlarged prostate. Please take Flomax (tamsulosin) 0.4 mg by mouth once daily. A follow-up appointment has been scheduled for you with Dr. Gonsales, your surgeon, in 1 week as above. A follow-up appointment is being scheduled for you with your primary care provider. You should be seen within 1 week. If you do not receive a call within the next 2 business days to confirm this appointment, please call Dr. Montes's office at [phone]. A copy of your hospital report has been sent to your primary care office, please discuss both her gallbladder and follow-up of the bone spots with your primary care provider at this visit. If you develop any new or worsening symptoms including fever, chills, sweats, chest pain, chest pressure, difficulty breathing, uncontrolled nausea/vomiting, rash, wheezing, passing out or nearly passing out, bleeding, black/bloody bowel movements, or other new or concerning symptoms please call your primary care physician at [phone], or call 911 for re-evaluation in the emergency department if you are very concerned. Pending Studies at Discharge: Yes Studies:: surgical pathology Stand-Alone Forms: My [facility], Smoking Cessation Medications and DC Order Prescriptions: New tamsulosin 0.4 mg Capsule 0.4 mg PO HS Qty: 30 RF: 0 Continued atorvastatin 10 mg tablet 10 mg PO QPM Qty: 30 RF: 5 metoprolol succinate 50 mg tablet extended release 24 hr 50 mg PO DAILY Qty: 90 RF: 3 lisinopril 5 mg tablet 5 mg PO DAILY Qty: 90 RF: 3 lansoprazole 15 mg capsule,delayed release(DR/EC) 15 mg PO Q2D RF: 0 levothyroxine 75 mcg tablet 75 mcg PO QAM RF: 0 metformin 1,000 mg tablet 1,000 mg PO QAM RF: 0 cholecalciferol (vitamin D3) 25 mcg (1,000 unit) capsule 1,000 unit PO DAILY RF: 0 Discharge Orders: Discharge Order (Routine); Ordered 02/03/20 Ordered By: Milind Singh Admission Data Admit Date/Time: 02/01/20 02:26 Attending Provider: Blanca Singh Admit Provider: Carlos Alexandra Primary Care Provider: Cheng Montes Other Providers: Rachael Marshall ; Catarino Mercado ; Paulino Gonsales
[2020-02-03] MEDS: OXYCODONE/ACETAMINOPHEN 5mg/325mg TAB PO PRN (10:39)
[2020-02-03] MEDS ORDERED: FUROSEMIDE 40 MG in SYRINGE 0 ML IV ONE ×2 (12:30→15:30)
--- NOTE | 2020-02-03 17:35 | Hospitalist Progress Note ---
Date of Service February 03, 2020 Assessment & Plan (1) Diabetes type 2, controlled: Epigastric abdominal pain: Patient is a 54-year-old male with past medical history of T2DM, hypertension, hypercholesterolemia, subclinical hypothyroidism, and vitamin D deficiency on Hospital Day #2 for RUQ/epigastric abdominal pain concerning for cholecystitis. RUQ/Epigastric Pain 2/2 cholecystitis - 01/31 HIDA scan: no gallbladder visualization, cystic duct obstruction, moderate-large enterogastric reflux - Surgery Consulted: s/p laparoscopic cholecystectomy & cholangiogram on 02/[address] Gonsales - PO intake improving, Low Fat Diet Shortness of Breath - Prior to d/c pt developed shortness of breath and general feeling of unwellness - 6L positive since admit - Diuresed x2 with lasix, brisk diuresis with mild improvement but pt reports still 'doesn't feel right' - CBC, BMP, XR ordered to better evaluate, will observe overnight - No leg swelling or pain, no tachycardia to suggest post-op DVT/PE - Pt walking laps in hallway regularly, on SCDs otherwise Left Renal Lesion - 01/31 CT Abdomen/Pelvis with Contrast: 1.8 cm left renal lesion questionable for cyst vs. small solid lesion - 01/31 Renal U/s: simple cyst, benign. No followup needed. Sclerotic Iliac Lesions - 01/31 CT Abdomen/Pelvis with Contrast: bilateral sclerotic lesions at iliac bones and L3 vertebral body. Enlarged prostate. - PSA normal. - Consulted Urology: Low suspicion for prostate mets, lesions are not ost eoblastic. - Discussed with Oncology. Biopsy unable to be performed at [facility], closest facility able to perform biopsy would be [place]. Recommend followup for further management as outpatient. Lower Urinary Tract Symptoms - Pt with some chronic difficulty voiding likely 2/2 enlarged prostate - Per urology continue flomax daily - Followup with urology as outpatient Type 2 Diabetes Mellitus, Controlled - A1c in September 2019: 4.9 - Fasting BS (02/01), 125 (01/31) - Resume lantus + SSI once able to tolerate post-op diet - Hold patient's home metforminn Hypertension - Continue lisinopril 5 mg, metoprolol succinate 50 mg Hyperlipidemia - Continue atorvastatin 10 mg Hypothyroidism TSH 3.39 Continue levothyroxine 75 mcg Vitamin D3 Deficiency - Continue cholecalciferol 1000 PO daily DVT prophylaxis: SCD thigh Full code Dispo: MedSurg (2) Renal cyst: (3) Incomplete bladder emptying: (4) Encounter for pre-operative examination: (5) Cholelithiasis: (6) Hypertension: (7) Diabetes type 2, uncontrolled: Admission and Anticipated Discharge Date Admission Date: February 01, 2020 Supervising Physician Co-Signing Physician Notes Resident Physician Supervision Note: I independently interviewed and examined the patient and verified the ramos history and physical, reviewed labs and image studies, discussed the case with the resident Dr. Singh and agree with the findings and care plan. Subjective Patient seen the bedside today. He feels he is doing okay, but feels off. He initially feels well in the beginning the day, but feels short of breath" not quite" in the afternoon. Denies fever, chills, sweats. Mild to moderate Review of Systems Review of Systems: All systems reviewed & are unremarkable except as noted in HPI & below Physical Exam Physical Exam: General: A&Ox3. NAD. Cooperative. HEENT: Atraumatic, normocephalic. Pulm: CTAB A&P. -wheezes, -rales, -rhonchi. Symmetrical chest rise. No increase work of breathing. Pt on 2L O2, reports feels slightly short of breath worsened with ambulation Cardiac: RRR, -mrg. Radial pulses intact and symmetrical. Abdominal: Surgical incision sites C/D/I without erythema or dehiscense. Mild discomfort to palpation, soft. BS present. Results & Data Results & Data ([facility]) Vital Signs (Past 12 Hours) Vital Signs Temp Pulse Resp BP Pulse Ox 02/03/20 15:37 81 18 118/75 92 02/03/20 07:05 36.8 C 70 18 101/64 94 Resident Activity Tracking Resident Involvement: Resident Care Provided Care Provided: Adult Hospital Medicine (1) Cholelithiasis Cholelithiasis location: gallbladder
--- NOTE | 2020-02-03 18:11 | XRay Report ---
XR chest 1V portable CLINICAL HISTORY: shortness of breath disc COMPARISON STUDY: 01/31/2020 FINDINGS: Moderate stable cardiomegaly. Lungs are grossly clear. Minimal atelectasis peripheral aspec t left base. IMPRESSION: Minimal atelectasis left base. Moderate stable cardiomegaly. ACT 112: Negative or not required by law. The above report was generated using voice recognition software. It may contain grammatical, syntax or spelling errors. Electronically signed by: Timmy Mayer M.D. 02/03/2020 6:10 PM
[2020-02-03 18:12] LABS: Basophils # (auto) 0.01 K/uL (0-0.2); Basophils % (auto) 0.1 %; Eosinophils # (auto) 0.04 K/uL (0-0.5); Eosinophils % (auto) 0.4 %; Hemoglobin 14.1 g/dL (14.0-18.0); Immature Granulocytes # (auto) 0.02 K/uL (0.00-0.02); Immature Granulocytes % (auto) 0.2 %; Mean Corpuscular Hemoglobin 31.1 pg (25-34); Mean Corpuscular Hgb Conc 36.2 g/dL (32-36); Mean Corpuscular Volume 85.9 fL (80-100); Mean Platelet Volume 10.8 fL (7.4-10.4); Monocytes # (auto) 0.96 K/uL (0.11-0.59); Monocytes % (auto) 8.9 %; Neutrophils # (auto) 8.51 K/uL (1.4-6.5); Neutrophils % (auto) 78.4 %; Platelet Count 160 K/uL (130-400); RDW Coefficient of Variation 13.9 % (11.5-14.5); RDW Standard Deviation 43.7 fL (36.4-46.3); Red Blood Count 4.54 M/uL (4.7-6.1); White Blood Count 10.84 K/uL (4.8-10.8)
[2020-02-03 18:31] LABS: BUN Creatinine Ratio 8.1 (10-20); Calcium 8.6 mg/dl (8.5-10.1); Creatinine Clr Calc Pharmacy 85.6 ml/min; Est GFR (African American) 66.7; Est GFR (Non-African American) 57.6; Potassium 3.6 mmol/L (3.5-5.1)
[2020-02-03] MEDS: ACETAMINOPHEN 325 MG TAB PO PRN (19:44)
[2020-02-03] MEDS: ATORVASTATIN 10 MG TAB PO SCH (20:16)
[2020-02-03] MEDS: TAMSULOSIN HCL 0.4 MG CAP PO SCH (20:16)
[2020-02-04] MEDS: PIPERACILLIN/TAZOBACTAM 4.5 GM in DEXTROSE 5% 100 ML IV SCH ×2 (05:00→14:15)
[2020-02-04] MEDS: OXYCODONE/ACETAMINOPHEN 5mg/325mg TAB PO PRN (05:00)
[2020-02-04] MEDS: LEVOTHYROXINE SODIUM 75 MCG TABLET PO SCH (05:07)
--- NOTE | 2020-02-04 05:53 | Surgery Progress Note ---
Date of Service February 04, 2020 Assessment & Plan (1) Cholelithiasis: Patient 48 hours postoperative laparoscopic cholecystectomy cholangiogram From that point of view he is progressing well Concerned about his shortness of breath certainly could be atelectasis reviewed the chest x-ray but may consider getting a CT scan of the chest to rule out pulmonary embolus We will leave that decision to the medical service [facility] surgeons are covering over the weekend Present on Admission?: Yes Subjective Denies any abdominal discomfort this soreness in the abdominal wall was able to tolerate a diet yesterday morning without any issues did not eat much for supper Main issue is respiratory status states he can hardly catch his breath according to the patient this is new He would like to get straightened out from his respiratory status before going home is pretty much he is lives by himself Physical Exam Physical Exam: Sitting up in bed on 1 L nasal cannula O2 sats 91% He is not tachycardic and does not really complain of any pleuritic chest pain The abdomen is pretty much unremarkable some abdominal wall discomfort Results & Data Vital Signs (Past 12 Hours) Vital Signs Temp Pulse Resp BP Pulse Ox 02/04/20 02:14 91 02/04/20 02:13 88 L 02/04/20 00:00 91 02/03/20 23:40 37.1 C 79 18 112/62 91 02/03/20 23:07 37.3 C 78 18 109/71 93 02/03/20 19:41 38.1 C H chest x-ray from yesterday was reviewed PG Care Time/CCT Total # of Minutes Spent Total Time Spent with Patient: Total time spent is greater than 50% in coordination of care (as documented) at patient's floor/unit and/or counseling patient: Coding Level of Care Code None Diagnoses Cholelithiasis K80.20 Cholelithiasis location: gallbladder (1) Cholelithiasis Cholelithiasis location: gallbladder
[2020-02-04] MEDS: HEPARIN SOD 5,000 UNIT/0.5 ML VIAL SQ SCH ×2 (06:19→14:15)
[2020-02-04 09:12] LABS: Basophils # (auto) 0.02 K/uL (0-0.2); Basophils % (auto) 0.2 %; Eosinophils # (auto) 0.05 K/uL (0-0.5); Eosinophils % (auto) 0.6 %; Hematocrit (blood only) 38.5 % (42-52); Hemoglobin 13.7 g/dL (14.0-18.0); Immature Granulocytes # (auto) 0.02 K/uL (0.00-0.02); Immature Granulocytes % (auto) 0.2 %; Lymphocytes # (auto) 1.74 K/uL (1.2-3.4); Lymphocytes % (auto) 19.5 %; Mean Corpuscular Hemoglobin 30.6 pg (25-34); Mean Corpuscular Volume 86.1 fL (80-100); Mean Platelet Volume 10.8 fL (7.4-10.4); Monocytes # (auto) 0.73 K/uL (0.11-0.59); Monocytes % (auto) 8.2 %; Neutrophils # (auto) 6.38 K/uL (1.4-6.5); Neutrophils % (auto) 71.3 %; Platelet Count 164 K/uL (130-400); RDW Coefficient of Variation 13.8 % (11.5-14.5); RDW Standard Deviation 43.5 fL (36.4-46.3); Red Blood Count 4.47 M/uL (4.7-6.1); White Blood Count 8.94 K/uL (4.8-10.8)
[2020-02-04 09:26] LABS: Mean Corpuscular Hgb Conc 35.6 g/dL (32-36)
[2020-02-04 09:30] LABS: Albumin Level 3.5 gm/dl (3.4-5.0); BUN Creatinine Ratio 10.5 (10-20); Calcium 8.9 mg/dl (8.5-10.1); Creatinine Clr Calc Pharmacy 93.1 ml/min; Est GFR (African American) 73.7; Est GFR (Non-African American) 63.6; Potassium 3.5 mmol/L (3.5-5.1)
[2020-02-04 09:33] LABS: Albumin Globulin Ratio 0.9 (0.9-2); Bilirubin,Total 3.4 mg/dl (0.2-1); Globulin 4.1 gm/dl (2.5-4.0); Total Protein 7.6 gm/dl (6.4-8.2)
[2020-02-04] MEDS: INSULIN GLARGINE SOLOSTAR 100 UNITS/ML 3 ML PEN SC SCH (09:39)
[2020-02-04] MEDS: INSULIN ASPART 100 UNITS/ML 3 ML PEN SC SCH ×2 (09:39→12:53)
[2020-02-04] MEDS: CHOLECALCIFEROL 1,000 UNITS 25 MCG TAB PO SCH (09:42)
[2020-02-04] MEDS: METOPROLOL SUCC 50MG EXT REL TAB PO SCH (09:42)
[2020-02-04] MEDS: lisinopriL 5 MG TAB PO SCH (09:42)
[2020-02-04] MEDS: POTASSIUM CHLORIDE 20 MEQ TABCR PO SCH (09:42)
[2020-02-04] MEDS: PANTOprazole 40 MG TAB PO SCH (10:23)
[2020-02-04] MEDS ORDERED: INSULIN ASPART 100 UNITS/ML 3 ML PEN SC ONE (14:24)
[2020-02-04] MEDS ORDERED: INSULIN GLARGINE SOLOSTAR 100 UNITS/ML 3 ML PEN SC ONE (14:24)
--- NOTE | 2020-02-04 21:40 | Discharge Summary ---
Date of Service February 04, 2020 Admission HPI Per Admitting Provider 54-year-old male with past medical history DM 2, hypertension, hypercholesterolemia, subclinical hypothyroidism, vitamin D deficiency presents with concerns of epigastric abdominal pain. Earlier in the morning patient had a colonoscopy after which he was eating [place] food for lunch. Around 4 PM patient noted a sharp constant pain that lasted for about an hour, nonradiating. Patient notes that he feels very bloated. Severity 8 or 9 out of 10 on pain scale. Previous similar such occurrence last when patient was eating a turkey sandwich. No known exacerbating or alleviating factors. Associated naus ea. Patient otherwise denies any fevers, vomiting, diarrhea, chills, chest pain, shortness of breath, urinary symptoms, no sick contacts or recent travel anywhere. Patient with no other acute concerns or complaints. At time of my evaluation patient notes he is no longer having abdominal pain, 0 out of 10. Pertinent labs: Glucose 125, phosphorus 2.4, T bili 1.9, direct bili 0.4, troponin negative, lipase/liver enzymes WNL CT abdomen pelvis with contrast ([facility]): The gallbladder is fully distended with slight wall thickening measuring 5-6 mm. No calcified gallstones are seen. There is mild fatty infiltration of the liver and hepatomegaly with the liver measuring 21 cm craniocaudad. No focal liver lesion is seen. The spleen is borderline enlarged measuring 15 cm. No splenic lesion is seen. The pancreas, adrenal glands, and kidneys appear nonacute. No hydronephrosis or ureterolithiasis is seen. US gallbladder ([facility]): The gallbladder is mildly dilated with a thickened wall measuring 8 mm. There are several tiny gallstones along the gallbladder wall and sludge. Sonographic Hendrickson sign is negative. The common bile duct is nondilated measuring 7 mm. ER course: IV acetaminophen 1 g, IV diphenhydramine 25 mg, IV famotidine 20 mg, IV morphine 2 mg / 4 mg, IV prochlorperazine, NSS 1.5 L Surgical history: No prior abdominal surgeries Social history: Denies tobacco use. Social alcohol use. Denies any illicit drug use Admission Exam Per Admitting Provider Constitutional: WD/WN, vitals as above Eyes: PERRL, conjunctivae normal, anicteric sclerae ENMT: external ear and nose normal, oropharynx normal Respiratory: normal respiratory effort, lungs clear to auscultation Cardiovascular: RRR, no murmur, no edema Gastrointestinal (Abdomen): normal bowel sounds, soft, nontender, no hepatosplenomegaly Inspection/Auscultation: + abdomen distended Percussion/Palpation: abdomen soft; no guarding Skin: no rashes, warm and dry Psychiatric: A+Ox3, euthymic affect Principal Diagnosis cholecystitis status post lap cholecystectomy Discharge Exam General: A&Ox3. NAD. Cooperative. HEENT: Atraumatic, normocephalic. EOMI. Pulm: CTAB. -wheezes, -rales, -rhonchi. Unable to take deep breaths limited by discomfort near surgical sites on abdomen. Cardiac: RRR, -mrg. Radial pulses intact and symmetrical. Abdominal: Mild tenderness at surgical incisions which are clean, dry, intact and without discharge. Discharge Data Allergies Allergy/AdvReac Type Severity Reaction Status Date / Time No Known Allergies Allergy Verified 01/31/20 20:48 Consultations 02/01/20 00:28 ED Decision to Admit Stat 02/01/20 09:46 Consult Urology Routine 02/01/20 15:09 Consult General Surgery Routine Procedures Performed Operation Date: 02/02/20 10:10 Actual Procedures p Laparoscopic Cholecystectomy with Cholangiogram - Paulino Gonsales MD Ordered Studies 01/31/20 22:10 CT abd pelvis IV con only Urgent 01/31/20 23:12 US gallbladder Urgent 02/01/20 13:30 US renal/blad retro comp Routine 02/02/20 11:30 FL cholangiogram OR Routine Hospital Course (1) Epigastric abdominal pain: Patient is a 54-year-old male with past medical history of T2DM, hypertension, hypercholesterolemia, subclinical hypothyroidism, and vitamin D deficiency presented with RUQ/epigastric abdominal pain concerning for cholecystitis. He received lap cholecystectomy during this admission. To Do After Discharge - f/u sclerotic iliac lesions found on CT RUQ/Epigastric Pain 2/2 cholecystitis s/p lap cholecystectomy Shailesh is a 54-year-old male who presented with right upper quadrant and epigastric pain with a history of pain incited with meals, and his most recent episode incited by nauseous. His lab work did not show transaminitis or an elevated alkaline phosphatase but did show elevated bilirubin. A CT scan showed a nondistended gallbladder but with thickened carroll. Follow-up HIDA scan showed cystic duct obstruction and moderate to large enterogastric reflux consistent with gallbladder disease, surgery was consulted and he underwent an uncomplicated laparoscopic cholecystectomy with Dr. Herman daily. He was transitioned successfully to a low-fat diet following recovery from surgery, and clinically improved. He was discharged to follow-up with surgery in 1 week and with his PCP. He was advised to maintain a low-fat diet for approximately 4 weeks and abstain from alcohol, but that most patients are able to return to a normal diet after recovery. Patient was discharged w/ Percocet 5s TID PRN x4 days for postop pain. SOB s/p lap cholecystecomy Post op fluid overload - needed two doses of lasix. Pulse ox 94% on RA with no respiratory distress on discharge. Left Renal Lesion On CT abdomen and pelvis for his right upper quadrant pain as noted above a 1.8 cm left renal lesion questionable for cyst versus small solid lesion was appreciated. Follow-up ultrasound showed a simple benign cyst which was not thought to be cancerous or premalignant, and does not require any regular follow-up. Sclerotic Iliac Lesions On his CT abdomen/pelvis for right upper quadrant pain as above bilateral sclerotic lesions at the iliac bones and the L3 vertebral body were appreciated along with an enlarged prostate. His PSA was normal. Urology was consulted and felt that this was likely not consistent with prostate mets which would look blastic in nature. Follow-up was discussed with oncology, biopsy is not able to be performed at [facility], closest facility able to perform this would likely be [facility]. It was recommended that he follow-up with his primary care physician to have further imaging or biopsy arranged as an outpatient. He is clinically stable and was discharged to follow-up with his outpatient provider. Lower Urinary Tract Symptoms Shailesh endorses chronic difficulty voiding and a moderately enlarged prostate was appreciated on his imaging. PSA was normal, although slightly increased from previous. Per urology he was started and continued on Flomax daily and will follow-up with urology as an outpatient. No prostate biopsy was recommended during admission. Type 2 Diabetes Mellitus, Controlled Justifies a history of type 2 diabetes well controlled with his last A1c of 4.9. was placed on Lantus and SSI with adequate glycemic control during admission, and was discharged to resume his [employer] doses of metformin. Hypertension -Continued lisinopril 5 mg, metoprolol succinate 50 mg Hyperlipidemia -Continued atorvastatin 10 mg Hypothyroidism TSH 3.39 Continued levothyroxine 75 mcg Vitamin D3 Deficiency - Continued cholecalciferol 1000 PO daily Hypokalemia -Transient hypokalemia to 3.3, resolved following 1 dose of IV and 1 dose of oral repletion -No other signs of kidney disease. FEN/GI: NSS@80, d/c fluids once tolerating PO DVT prophylaxis: SCD thigh Full code Dispo: MedSurg (2) Diabetes type 2, controlled: (3) Renal cyst: (4) Incomplete bladder emptying: (5) Encounter for pre-operative examination: (6) Cholelithiasis: (7) Hypertension: (8) Diabetes type 2, uncontrolled: Total Time Total Time Spent Total Time Spent (In Minutes): Please refer to attending documentation. Discharge Plan Discharge Items Patient Disposition: Home - Self-Care Reason For Visit: CHOLEYCYSTITIS Discharge Diagnosis: laparoscopic cholecystectomy Activity: Per Instructions section Lifting: No more than 10 pounds Bathing Comment: may shower; no tub soaks Driving/Machine Use: Resume 3 days after discharge Non-emergency contact: Primary Care Provider Call non-emergency contact if: you have any medication questions, your symptoms worsen, your pain is not controlled, your pain is worsening, your pain is unusual for you, your pain is concerning for you, you have a fever, your temperature is above 101.5, your wound has increased redness, your wound has increased drainage and your wound pain has increased Follow-up/Referrals: Cheng Montes CRNP [Primary Care Provider] - Paulino Gonsales MD [Surgeon] - (Please call to schedule follow up in clinic within 1 week) Diet: Low Fat Addtl Attending Provider Instructions: You are seen in the hospital for abdominal pain and found to have a inflamed gallbladder. Your gallbladder was surgically removed, your surgery went well and was uncomplicated. During her work-up you were found to have a small cyst on your kidney. Follow-up ultrasound showed that this was a simple cyst which is not cancerous or dangerous, and does not require further follow-up. Your imaging also showed 2 areas of sclerosis on your pelvis and 1 on a bone in your back which require further follow-up. This was discussed with urology as you have had a slightly enlarged prostate, but based on the appearance of the spots it was felt that these were not likely to be consistent with prostate cancer but should still be followed up as an outpatient. You have small white bandages over your incisions called steri-strips. You may shower with these on, they will fall off on their own within 7-10 days Please maintain a low-fat diet for the next 4 weeks. Following gallbladder removal most patients are eventually able to resume a normal diet, but since the gallbladder helps digest and process fat this should be limited for the first 4 weeks while your body heals and adjusts. Please also avoid alcohol during this time. You have had a new medication prescribed, Flomax, to help your urination which is been affected by a slightly enlarged prostate. Please take Flomax (tamsulosin) 0.4 mg by mouth once daily. A follow-up appointment has been scheduled for you with Dr. Gonsales, your surgeon, in 1 week as above. A follow-up appointment is being scheduled for you with your primary care provider. You should be seen within 1 week. If you do not receive a call within the next 2 business days to confirm this appointment, please call Dr. Montes's office at [phone]. A copy of your hospital report has been sent to your primary care office, please discuss both her gallbladder and follow-up of the bone spots with your primary care provider at this visit. If you develop any new or worsening symptoms including fever, chills, sweats, chest pain, chest pressure, difficulty breathing, uncontrolled nausea/vomiting, rash, wheezing, passing out or nearly passing out, bleeding, black/bloody bowel movements, or other new or concerning symptoms please call your primary care physician at [phone], or call [phone] for re-evaluation in the emergency department if you are very concerned. Pending Studies at Discharge: Yes Studies:: surgical pathology Stand-Alone Forms: [facility], Work/School Release (Inpt), Smoking Cessation Medications and DC Order Prescriptions: New tamsulosin 0.4 mg Capsule 0.4 mg PO HS Qty: 30 RF: 0 oxycodone-acetaminophen [Percocet] 5-325 mg Tablet 1 tab PO TID Qty: 14 RF: 0 Continued atorvastatin 10 mg tablet 10 mg PO QPM Qty: 30 RF: 5 metoprolol succinate 50 mg tablet extended release 24 hr 50 mg PO DAILY Qty: 90 RF: 3 lisinopril 5 mg tablet 5 mg PO DAILY Qty: 90 RF: 3 lansoprazole 15 mg capsule,delayed release(DR/EC) 15 mg PO Q2D RF: 0 levothyroxine 75 mcg tablet 75 mcg PO QAM RF: 0 metformin 1,000 mg tablet 1,000 mg PO QAM RF: 0 cholecalciferol (vitamin D3) 25 mcg (1,000 unit) capsule 1,000 unit PO DAILY RF: 0 Discharge Orders: Discharge Order (Routine); Ordered 02/04/20 Ordered By: Maxim Steve Admission Data Admit Date/Time: 02/01/20 02:26 Attending Provider: Blanca Singh Admit Provider: Carlos Alexandra Primary Care Provider: Cheng Montes Other Providers: Rachael Marshall ; Catarino Mercado ; Paulino Gonsales Other Interventions: Discharge Summary Assessment (RN) Last Done: 02/04/20 10:09 DC Date/Time DO NOT enter until pt leaves facility: 02/04/20 14:25 Supervising Physician Co-Signing Physician Notes Resident Physician Supervision Note: I independently interviewed and examined the patient and verified the ramos history and physical, reviewed labs and image studies, discussed the case with the resident Dr. Steve and agree with the findings and care plan. Resident Activity Tracking Resident Involvement: Resident Care Provided Care Provided: Adult Hospital Medicine
== END 2020-02-04 14:25 | disposition home or self-care (01) ==
LOC: ED 19:30 → 2W 19:30 → SUATTDRO 02-01 02:26 → 2W 02-01 04:47 → 3N 02-03 23:15